=== PATIENT | female | born 1940 | race Caucasian/White ===

== ENCOUNTER 2019-01-27 13:47 | Inpatient (IN) ==
--- NOTE | 2019-01-27 11:39 | Anesthesia Evaluation PreOp ---
Date of Encounter: 01/27/19 Time of Encounter: 15:16 - Past History Planned Operation: Right Total Knee Arthroplasty Cardiac History: HTN, Hyperlipidemia Pulmonary History: Smoker (45 years), Snore, ARNOL Dx (dos not use CPAP) COMPONENT TECHNICIAN History: Other (chronic low back pain) Other Medical History: Thyroid, GERD, Other (anxiety) Anesthesia History: Past Anesthesia, Problems (PONV) Alcohol Use: none Drug use: none Medications and Allergies Albuterol Sulfate [Ventolin Hfa] 2 puff IH Q4H PRN 01/27/19 [History] Buspirone HCl [Buspar] 5 mg PO BID 01/27/19 [History] FLUoxetine HCl [PROzac] 60 mg PO DAILY 01/27/19 [History] Fluticasone/Salmeterol [Advair 250-50 Diskus] 1 puff IH BID 01/27/19 [History] Furosemide [Lasix] 40 mg PO DAILY 01/27/19 [History] Gabapentin [Neurontin] 200 mg PO TID 01/27/19 [History] Levothyroxine Sodium 112 mcg PO DAILY 01/27/19 [History] Lisinopril/Hydrochlorothiazide [Zestoretic 20-25 mg Tablet] 1 tab PO DAILY 01/27/19 [History] Meloxicam 15 mg PO DAILY 01/27/19 [History] Omeprazole [PriLOSEC] 20 mg PO DAILY 01/27/19 [History] Pravastatin Sodium [Pravachol] 40 mg PO HS 01/27/19 [History] Allergy/AdvReac Type Severity Reaction Status Date / Time codeine AdvReac Hives Verified 01/27/19 14:38 - Meds/Allergy Pre-op Review Medications Reviewed: Yes Allergies Reviewed: Yes Beta Blockers on Current Med List: No Anesthesia Results - Labs Laboratory Tests 01/26/19 01/26/19 01/26/19 09:33 09:33 09:33 WBC 9.8 Hgb 16.8 H Hct 50.9 H Plt Count 337 PT 11.3 INR 1.0 APTT 36.0 Sodium 138 Potassium 3.4 L BUN 23 Creatinine 1.10 - Imaging EKG: report reviewed (12/29/2018 SINUS RHYTHM NONSPECIFIC T-WAVE ABNORMALITY) Additional studies: 01/18/2019 LEFT HEART CATH Indications: Pre-operative Evaluation Impressions: Coronary arteries have minimal disease The left ventricle is normal and has normal contractility EF 60% Acceptable intermediate CV risk for intermediate risk surgery Recommendations: Optimal medical therapy of patient's disease. Aggressive risk factor modification. 01/07/2019 Echo Impressions: LVEF 60%. Not all LV segments were well visualized. Overall, LVEF is normal. Mild concentric left ventricular hypertrophy. Mild left ventricular diastolic dysfunction. Normal right ventricular structure and function. No evidence of pulmonary hypertension. No significant valvular dysfunction. 01/06/2019 Stress Impression: Fair quality 2 day study. Pharmacologic stress ECG is non-diagnostic due to submaximal HR. Gated EF = 72%. Medium sized, moderate intensity, mostly reversible defect involving the inferolateral and anterolateral segments possibly due to ischemia. Ordering physician notified via eCW message. Anesthesia Exam O2 Sat Height 1.65 m Weight 107.955 kg O2 Sat by Pulse Oximetry 91 Vital Signs Temp Pulse Resp BP Pulse Ox 98.0 F 65 18 128/66 91 01/27/19 14:02 01/27/19 14:02 01/27/19 14:02 01/27/19 14:02 01/27/19 14:02 Height: 5'5'' Weight: 238 lbs NPO (# of Hours): 8 Pain Scale: 5 (low back) Pain Scale Used: Numeric (1 - 10) - HEENT Pupil (Motor): EOMI Mallampati: II Teeth: Missing, Poor dentition Denture Type: Upper: Complete Oral Opening: Greater than 3 - COMPONENT TECHNICIAN LOC: Oriented COMPONENT TECHNICIAN Motor: Normal RUE, Normal RLE, Normal Face, Deficit LUE, Deficit LLE COMPONENT TECHNICIAN Sensory: Normal: RUE, RLE, Face, Deficit: LUE, LLE - Cardiac Rhythm: Regular Murmur: None - Pulmonary Breath Sounds: bilateral Clear Respiratory Effort: Symmetrical Anesthesia Assess/Plan ASA Score: 3 Level of consciousness: Cooperative, Oriented, Tranquil Anesthetic Plan: General, Regional Nerve Block Regional Nerve Block Plan: Adductor canal Reason for No Neuroaxial/Regional Block: Patient refusal Monitoring Plan: Standard Monitors Recovery Plan: PACU
[2019-01-27] MEDS ORDERED: Albuterol 2.5 MG/3 ML NEBULIZER IH ONE (14:54)
[2019-01-27] MEDS ORDERED: CeFAZolin Syr 2,000MG/20 ML 2,000 MG/20 ML SYRINGE IVPB ONE (14:54)
[2019-01-27] MEDS ORDERED: Ringers Solution, Lactated 1,000 ML IVC SCH (15:00)
--- NOTE | 2019-01-27 15:19 | Discharge Summary ---
<Jean Rodríguez M - Last Filed: 01/27/19 15:16> Date of Encounter: 01/27/19 - Discharge Diagnosis (1) Osteoarthritis of right knee Priority: Primary Status: Acute Qualifiers: Osteoarthritis type: unspecified Qualified Code(s): M17.11 - Unilateral primary osteoarthritis, right knee (2) HTN (hypertension) Priority: Secondary Status: Acute Qualifiers: Hypertension type: unspecified Qualified Code(s): I10 - Essential (primary) hypertension (3) GERD (gastroesophageal reflux disease) Priority: Secondary Status: Acute Qualifiers: Esophagitis presence: esophagitis presence not specified Qualified Code(s): K21.9 - Gastro-esophageal reflux disease without esophagitis - Hospital Course Hospital course: Ms. Cardenas is a 78 year old female - Time Spent with Patient Total time spent providing and/or coordinating discharge services: - Discharge Medications Prescriptions: New Docusate [Colace] 100 mg PO BID 5 Days #10 capsule Ibuprofen [Motrin] 600 mg PO Q6HR PRN 7 Days #28 tab PRN Reason: Pain Acetaminophen [Pain Relief] 500 mg PO Q6H 7 Days #28 tablet OxyCODONE Immed Rel [Roxicodone 5 MG] 5 mg PO Q6HR PRN 5 Days #20 tablet PRN Reason: Severe Pain Ciprofloxacin [Cipro] 500 mg PO BID 10 Days #20 tablet metroNIDAZOLE [Flagyl] 500 mg PO TID 10 Days #30 tablet Continued Albuterol Sulfate [Ventolin Hfa] 2 puff IH Q4H PRN PRN Reason: Shortness Of Breath Buspirone HCl [Buspar] 5 mg PO BID FLUoxetine HCl [Prozac] 60 mg PO DAILY Fluticasone/Salmeterol [Advair 250-50 Diskus] 1 puff IH BID Furosemide [Lasix] 40 mg PO DAILY Gabapentin [Neurontin] 200 mg PO TID Levothyroxine Sodium 112 mcg PO DAILY Meloxicam 15 mg PO DAILY Omeprazole [PriLOSEC] 20 mg PO DAILY Pravastatin Sodium [Pravachol] 40 mg PO HS Discontinued Lisinopril/Hydrochlorothiazide [Zestoretic 20-25 mg Tablet] 1 tab PO DAILY Home Medications: Acetaminophen [Pain Relief] 500 mg PO Q6H 7 Days #28 tablet 01/27/19 [Rx] Albuterol Sulfate [Ventolin Hfa] 2 puff IH Q4H PRN 01/27/19 [History] Buspirone HCl [Buspar] 5 mg PO BID 01/27/19 [History] Docusate [Colace] 100 mg PO BID 5 Days #10 capsule 01/27/19 [Rx] FLUoxetine HCl [Prozac] 60 mg PO DAILY 01/27/19 [History] Fluticasone/Salmeterol [Advair 250-50 Diskus] 1 puff IH BID 01/27/19 [History] Furosemide [Lasix] 40 mg PO DAILY 01/27/19 [History] Gabapentin [Neurontin] 200 mg PO TID 01/27/19 [History] Ibuprofen [Motrin] 600 mg PO Q6HR PRN 7 Days #28 tab 01/27/19 [Rx] Levothyroxine Sodium 112 mcg PO DAILY 01/27/19 [History] Meloxicam 15 mg PO DAILY 01/27/19 [History] Omeprazole [PriLOSEC] 20 mg PO DAILY 01/27/19 [History] OxyCODONE Immed Rel [Roxicodone 5 MG] 5 mg PO Q6HR PRN 5 Days #20 tablet 01/27/19 [Rx] Pravastatin Sodium [Pravachol] 40 mg PO HS 01/27/19 [History] Ciprofloxacin [Cipro] 500 mg PO BID 10 Days #20 tablet 02/01/19 [Rx] metroNIDAZOLE [Flagyl] 500 mg PO TID 10 Days #30 tablet 02/01/19 [Rx] Allergies/Adverse Reactions: Allergy/AdvReac Type Severity Reaction Status Date / Time codeine AdvReac Hives Verified 01/27/19 14:38 Primary care physician: Marcial Buck CNP - Patient Status Disposition: Transfer SNF Condition: Good - Discharge Instructions Follow Up With: Marcial Buck CNP [Primary Care Provider] - () Additional Instructions: Discharge Instructions: Total Knee Replacement Please call [facility] ([phone]), your Primary Care Physician, or report to the Emergency Room if you have any of the following symptoms: Nausea, vomiting, fever greater that 101.5, swelling, chest pain, shortness of breath, increased pain/redness/drainage/odor for your incision site, numbness/tingling, or any other concerning symptoms. ACTIVITY:Weight-bearing as tolerated. You may progress off support (crutches or walker) as tolerated. Incentive Spirometer 10 times an hour. MEDICATIONS: Upon discharge resume your home medications. Take all the medications as prescribed. Take a stool softener if taking narcotic pain medications. Stool softeners are only effective if you drink enough fluids. Drink 6-8 glass of water or fluids a day, unless this is not allowed for another health problem. Despite using stool softeners, if you haven't had a bowel movement in 3 days, please switch to a gentle laxative. Gentle laxatives are sold over the counter. You should have a bowel movement within 24 hours, if not call the office. You will be discharged from the hospital with a prescription for pain medication. You are encouraged to decrease the use of narcotic pain medication as tolerated. Should you require a refill, please call the office. [facility] prescribes narcotic pain medication for only 4-6 weeks after surgery. If you require pain medication beyond this time period, you may be referred to your Primary Care Physician or to the Pain Clinic for further evaluation. Plan ahead for refills on pain medication as many narcotics either need to be picked up at the office or mailed. It is best to call 48-72 hours in advance of needing a prescription refill so you don't run out of medication. To help control the post-operative pain, you may take NSAIDs (Aleve,Advil, Motrin, Ibuprofen, Naprosyn) or Tylenol as prescribed on the bottle in addition to the pain medication. ANTICOAGULATION (blood thinners): Continue your Aspirin, Lovenox or Coumadin as prescribed to help prevent a blood clot in the leg or in the lungs. As long as your incision remains dry and you tolerate the NSAIDs (Aleve, Advil, Motrin, ibuprofen, naprosyn), it is OK to use the NSAIDS while you are taking your anticoagulation medication. Should your incision start to drain, stop the NSAID and contact our office. Common symptoms of blood clot in the legs include: localized pain, swelling, calf tenderness, redness or discoloration of the skin. Blood clot in the lung s ymptoms include: shortness of breath, rapid pulse, sweating, and chest pain that worsens with deep breathing, coughing up blood, lightheadedness, feelings of anxiety. If you experience any of these symptoms notify your physician immediately, go to the emergency room, or if having trouble breathing, call 911. WOUND CARE: Leave the dressing on for 7 to 10days. You may change the dressing if it becomes saturated greater than 50%. Do not get the dressing wet at anytime. Wash your hands with antibacterial soap, rinse and dry prior to any wound care. If you have mera the visiting nurse or rehab facility can remove the stapes 10-14 days after surgery and place steri-strips across the wound. Leave the steri-strips in place until they fall off on their won. You may let water from the shower run on top of the steri-strips. If you do not have a visiting nurse or rehab facility, you will need to return to the office at 10-14 days for the mera to be removed. If you have itching or redness around the dressing call the office. FOLLOW-UP: Please follow up with your surgeon in the orthopedic clinic in 4 weeks from the day of surgery. If you have mera that need to be removed, you will need to come back to the office in 10-14 days from the day of surgery. <Ashely Avina - Last Filed: 02/01/19 16:27> Date of Encounter: 02/01/19 Time of Encounter: 12:20 - Discharge Diagnosis (1) Status post total right knee replacement Priority: Primary Status: Acute (2) Osteoarthritis of right knee Priority: Primary Status: Chronic Qualifiers: Osteoarthritis type: unspecified Qualified Code(s): M17.11 - Unilateral primary osteoarthritis, right knee (3) Hypotension Priority: Secondary Status: Resolved Qualifiers: Hypotension type: unspecified hypotension type Qualified Code(s): I95.9 - Hypotension, unspecified (4) LLQ abdominal pain Priority: Secondary Status: Acute (5) COPD (chronic obstructive pulmonary disease) Priority: Secondary Status: Chronic Qualifiers: COPD type: unspecified COPD Qualified Code(s): J44.9 - Chronic obstructive pulmonary disease, unspecified (6) Diabetes mellitus Priority: Secondary Status: Chronic Qualifiers: Diabetes mellitus type: type 2 Diabetes mellitus electric shaver mechanic insulin use: unspecified electric shaver mechanic insulin use status Diabetes mellitus complication status: without complication Qualified Code(s): E11.9 - Type 2 diabetes mellitus without complications (7) GERD (gastroesophageal reflux disease) Priority: Secondary Status: Chronic Qualifiers: Esophagitis presence: esophagitis presence not specified Qualified Code(s): K21.9 - Gastro-esophageal reflux disease without esophagitis (8) HLD (hyperlipidemia) Priority: Secondary Status: Chronic Qualifiers: Hyperlipidemia type: unspecified Qualified Code(s): E78.5 - Hyperlipidemia, unspecified (9) HTN (hypertension) Priority: Secondary Status: Chronic Qualifiers: Hypertension type: unspecified Qualified Code(s): I10 - Essential (primary) hypertension (10) ARNOL on CPAP Priority: Secondary Status: Chronic (11) Obesity Priority: Secondary Status: Chronic Qualifiers: Obesity type: unspecified obesity type Obesity classification: adult class 3 (BMI >= 40) Body mass index: BMI 40.0-44.9 (12) Smoking Priority: Secondary Status: Chronic (13) Thyroid disorder Priority: Secondary Status: Chronic - Hospital Course Hospital course: Ms. Cardenas is a 78 year old female status post right TKR 01/27/19 with medical history of OA, DM, HTN, COPD, ARNOL with noncompliant use of CPAP, smoker, thyroid disorder. Hospitalist was consults for management of postoperative hypotension and mild acute blood loss anemia both of which resolved/improved with fluid bolus. She did develop nausea, diarrhea and abdominal cramping which raised concern for possible cdiff. CT of abd/pelvis showed nonspecific colitis and diverticulosis. diarrhea resolved before a stool sample could be collected. Nausea is improved as well. Hospitalist recommends she still be discharged on 10 day course of cipro and flagyl. She participated in therapy and is recommended for placement to ECF. She is stable for discharge at this time. POD#5 s/p Right robotic-assisted Total knee replacement [arthritis] 01/27/19 Patient seen at bedside with no complaints. A&Ox3 Dressing has quarter sized area of older bloody drainage. Nurse to change dressing before patient leaves. No calf tenderness, erythema, or warmth. good dorsiflexion of foot, sensation intact distally. Labwork, vitals, and medications reviewed. H/H improved to 11.4/35.6, WBC improved from 14.2 to 12.7, kidney function improved. Pain control: Adequate Participating in therapy. All questions and concerns addressed. Educated on use of incentive spirometer, ambulation, and hydration. Patient educated on post-operative restrictions and care. D/C plan: ECF today - Time Spent with Patient Total time spent providing and/or coordinating discharge services: Date of admission: 01/28/19 11:19 Primary care physician: Marcial Buck CNP Consults: 01/27/19 20:04 Consult to Nutrition [CONS] Routine Comment: Consulting Provider: NUTRITION Reason for Dietary Consult: Other Other:: Proper nutrition to facilitate wound healing Consult to Occupational Therapy [CONS] Routine Comment: Evaluate, develop and implement POC Reason for Consult: post knee surgery Does patient have active BEDREST order?: No Is patient medically & hemodynamically stable?: Yes Consult to Orthopedic Navigator [CONS] [CONS] Routine Consult to Physical Therapy [CONS] Routine Comment: Evaluate, develop and impliment POC Reason for Consult: post knee surgery Does patient have active BEDREST order?: No Is patient medically & hemodynamically stable?: Yes Consult to Assembly Machine Tender [CONS] Routine Reason for SW Consult: post op joint replacement RT Post Op Consult [CONS] Routine 01/30/19 07:48 Consult to Hospitalist [CONS] Routine Consulting Provider: Hospitalist Jessica Reason for Consult: low blood pressure Call Completed: Yes Discharging clinician: Werner Lewis Anticipated date of discharge: 02/01/19 Labs on day of discharge: Labs from last 24 hours 02/01/19 02/01/19 05:46 05:46 WBC 12.7 H RBC 4.00 Hgb 11.4 L Hct 35.6 MCV 89.0 MCH 28.5 MCHC 32.0 RDW 14.2 Plt Count 307 MPV 9.5 Sodium 141 Potassium 3.6 Chloride 98 Carbon Dioxide 34 H BUN 14 Creatinine 0.85 Est GFR ( Amer) > 60 Est GFR (Non-Af Amer) > 60 BUN/Creatinine Ratio 16 Glucose 106 H Calculated Osmolality 293 Calcium 9.2 Short CBC 02/01/19 Range/Units 05:46 WBC 12.7 H (4.3-11.1) K/mcL Hgb 11.4 L (11.5-15.4) g/dL Hct 35.6 (35.3-44.9) % Plt Count 307 (140-400) K/mcL BMP 02/01/19 Range/Units 05:46 Sodium 141 (136-145) mEq/L Potassium 3.6 (3.5-5.1) mEq/L Chloride 98 (98-107) mEq/L Carbon Dioxide 34 H (23-29) mEq/L BUN 14 (8-23) mg/dL Creatinine 0.85 (0.60-1.20) mg/dL Glucose 106 H (70-105) mg/dL Calcium 9.2 (8.6-10.3) mg/dL - Impressions ITS Impressions Knee X-Ray 01/27/19 01:00 IMPRESSION: Expected postsurgical change from right knee total arthroplasty. D/ / Werner Grajeda MD / Werner Grajeda MD Interpreting Provider: Werner Grajeda MD Abdomen/Pelvis CT 01/31/19 10:22 IMPRESSION: 1. Mild bowel wall thickening of the proximal descending colon which is nonspecific but could indicate a mild infectious or inflammatory colitis. 2. Marked diverticulosis. 3. Incidental left adrenal adenoma. 4. Moderate atherosclerosis. D/ / 01/31/2019 15:26:58 Yosef Barahona MD / [facility] Interpreting Provider: Yosef Barahona MD - Patient Status Functional capacity at discharge: uses cane/walker Overall status at discharge: patient is progressing back to baseline - Diet and Activity Activity: ambulate only with your walker, as per physical therapy Diet: advance to your usual diet
[2019-01-27] MEDS ORDERED: Scopolamine Patch 1.5 MG PATCH.TD72 TD ONE (15:30)
[2019-01-27] MEDS ORDERED: Gabapentin 300 MG CAPSULE PO ONE (15:30)
[2019-01-27] MEDS ORDERED: Celecoxib 200 MG CAPSULE PO ONE (15:30)
[2019-01-27] MEDS ORDERED: *HR* OxyCODONE ER (12 HR) 10 MG TABLET PO ONE (15:31)
[2019-01-27] MEDS ORDERED: Ondansetron 4 MG/2 ML VIAL IVP ONE (15:41)
[2019-01-27] MEDS ORDERED: Total Joint Mixture (50 ml) IR ONE (16:10)
[2019-01-27] MEDS ORDERED: Ethanol\\Acetic Acid\\Na Ace\\Ben 1,000 ML IRRIG.SOLN IR ONE (16:22)
[2019-01-27] MEDS ORDERED: *HR* FentaNYL (PF) 100 MCG/2 ML VIAL ONE (16:24)
[2019-01-27] MEDS ORDERED: Dexamethasone 4 MG/ML VIAL ONE ×2 (16:27→17:40)
[2019-01-27] MEDS ORDERED: Lidocaine -MPF 2% 2 ML VIAL ONE (16:27)
[2019-01-27] MEDS ORDERED: ROPIVACAINE/PF/NS 0.25% 1 EACH SYRINGE INTRAART ONE (16:28)
[2019-01-27] MEDS ORDERED: *HR* Rocuronium Bromide 50 MG/5 ML VIAL ONE (17:04)
[2019-01-27] MEDS ORDERED: Tranexamic Acid 1,000 MG/10 ML VIAL ONE ×2 (17:09→17:20)
--- NOTE | 2019-01-27 17:19 | Anesthesia Procedures ---
Date of Encounter: 01/27/19 Time of Encounter: 16:50 Procedures: Anesthesia - Nerve Block Procedure Date: 01/27/19 Time: 16:50 Allergies/Adv Reactions: Allergy/AdvReac Type Severity Reaction Status Date / Time codeine AdvReac Hives Verified 01/27/19 14:38 Pre-op Diagnosis: right knee arthritis Surgical Procedure: right total replacement robotic Checklist: Correct Patient Identifier, Correct procedure, History checked Correct side: Right Blood Thinner: No Monitor Applied: EKG, BP, Pulse Oximetry Supplemental Oxygen via Nasal Cannula (L/min): 2 Sedation: Fentanyl (mcg): 100 Indication: Post Op Analgesia Block Type: Other (addcutor canal) Catheter placed: No Sterile Technique: Yes Ultrasound used: Yes Anatomy identified: Yes Visual spread of Local: Yes Blood on Needle Aspiration: No Smooth Injection of Local: Yes Pain with Injection of Local: No Prep: Chlorhexadine Needle: 21 x 100 mm Stimuplex Local: Ropivacaine (10ml .25% ropivicaine with decadron) Volume (cc): 10 Number of Attempts: 1 Complications: None/effective block Vitals: see nurses vitals
[2019-01-27] MEDS ORDERED: Ondansetron 4 MG/2 ML VIAL ONE (17:40)
--- NOTE | 2019-01-27 17:44 | Orthopedic Operative Note ---
Date of procedure: 01/27/19 Pre-op diagnosis: Right knee arthritis Post-op diagnosis: same Procedure: Procedure: Right robotic-assisted Total knee replacement Estimated blood loss: 300 cc Hardware: Metal and polyethylene replacement. [place] Femur: 5 Tibia: 4 TS insert:9 Patella: 36 Exam Under anesthesia: 13 degree flexion contracture and 13 degree varus deformity as calculated by the robot full flexion and no instability Procedural Notes: Grade 4 arthritic changes all 3 compartments multiple loose bodies Operative procedure: The patient was brought to the operating room and placed on the operating room table. After anesthesia was administered the operative knee was examined. Findings were noted in the exam under anesthesia. The operative extremity was prepped and draped in sterile surgical fashion. The patient received IV antibiotics prior to skin incision. A standard midline incision was made centered over the patella. The incision was made through the skin and subcutaneous tissue. A medial parapatellar tendon approach was performed. Care was taken to preserve tissue along the medial aspect of the patella. And to protect the patella tendon. The deep MCL was released off the medial tibia. The infra patella fat pad was excised. The patella was everted and cut was made at the level of the insertion of the quadriceps and patella tendon. The patella was sized the guide was seated and the lug holes are drilled. Knee was brought into flexion. Patient noted to have grade 4 arthritic changes all 3 compartments with multiple loose bodies which were removed. Steinmann pins were placed in the tibia and the femur for the tibial and femoral arrays respectively. Checkpoints were also placed in the tibia and the femur for calculation purposes. The knee including the femur and the tibial registered. Osteophytes, ACL and PCL were excised at this point. Extension and flexion were assessed with a valgus stress components were adjusted on the computer to balance the knee. Femoral cuts were made first with robotic assistance, these included the anterior cut posterior cuts chamfer cuts. Tibial cut was then performed with robotic assistance as well. Bone fragments were removed, as well as the medial and lateral meniscus. The size 5 femoral guide was seated box cut was made lug holes are drilled. The size 4 tibial tray was seated and prepared with the fin cutter. Trial reduction with the 9 TS Jeanna revealed extension of 0 degrees and 6 degree varus and full flexion. No varus valgus instability. Trial reduction revealed excellent patella tracking. All trial components were removed all bony surfaces were irrigated. The Tibia was seated followed by the femur, The selected Jeanna size was seated and secured patella. Patient had similar findings for motion and stability. The knee was closed by the PA. The knee was then irrigated out with 2 L of pulse irrigation. The extensor mechanism was closed with #2 FiberWire suture and #2 PDS suture. The subcutaneous tissue was then irrigated and closed deep with #1 PDS suture superficially with 0 PDS suture and skin was closed with zip tie The patient was then placed in a sterile dressing and a postoperative brace and transferred to recovery room in stable condition. Anesthesia: GETA Surgeon: Werner Lewis Was there an assistant banquet manager present: Yes Assistant Community Manager: Jean Rodríguez Estimated blood loss (cc): 300 Condition: stable Disposition: PACU
[2019-01-27] MEDS ORDERED: EPHEDrine 50 MG/ML VIAL ONE (17:49)
[2019-01-27] MEDS ORDERED: *HR* HYDROMORPHONE 2 MG/ML VIAL ONE (17:54)
[2019-01-27] MEDS: *HR* HYDROmorphone (PF) 1 MG/ML SYRINGE IVP PRN ×2 (18:37→18:48)
[2019-01-27 19:09] LABS: Hematocrit 41.5 % (35.3-44.9); Hemoglobin 13.5 g/dL (11.5-15.4)
[2019-01-27] MEDS ORDERED: Sennosides 8.6 MG TABLET PO PRN (20:04)
[2019-01-27] MEDS ORDERED: traMADol 50 MG TABLET PO PRN (20:04)
[2019-01-27] MEDS ORDERED: MOM Conc 10 ML UD.LIQ PO PRN (20:04)
[2019-01-27] MEDS ORDERED: Temazepam 15 MG CAPSULE PO PRN (20:04)
[2019-01-27] MEDS ORDERED: *HR* OxyCODONE Immed Rel 5 MG TABLET PO PRN (20:04)
[2019-01-27] MEDS ORDERED: Naloxone 0.4 MG/ML INJ IVP PRN (20:04)
[2019-01-27] MEDS ORDERED: *HR* Promethazine 25 MG/ML VIAL IVP PRN (20:04)
--- NOTE | 2019-01-27 20:58 | Anesthesia Evaluation Post Op ---
Date of Encounter: 01/27/19 Time of Encounter: 21:00 - Vital Signs Vital Signs: Vital Signs/O2 Sat/Glucose, Most Current Temp Pulse Resp BP Pulse Ox 01/27/19 20:30 98.1 F 75 14 107/68 90 01/27/19 20:03 97.2 F L 75 14 138/83 95 01/27/19 20:00 98.4 F 74 14 138/83 91 01/27/19 19:59 13 93 01/27/19 19:29 97.7 F 74 10 107/58 98 01/27/19 19:19 97.6 F 75 10 121/53 100 01/27/19 19:09 69 10 118/54 100 01/27/19 18:59 70 8 109/52 92 01/27/19 18:49 97.6 F 75 12 119/59 95 01/27/19 18:39 68 12 119/51 98 01/27/19 18:29 79 10 118/69 97 01/27/19 18:19 97.5 F L 77 14 148/68 98 - Lungs Lungs: Clear Ascult./Percussion - Airway Airway: Non-obstructed - Cardiovascular Regular Rate - Mental Status Mental Status: Alert & Oriented, Answers Appropriately - Pain Pain Scale: 0 - Nausea Vomiting Nausea Vomiting: Not Present - Hydration Hydration: Ice chips - Discharge PostOp Status: Transfer Patient to floor
[2019-01-27] MEDS ORDERED: Gabapentin 300 MG CAPSULE PO SCH (21:00)
[2019-01-27] MEDS: Gabapentin 100 MG CAPSULE PO SCH (22:14)
[2019-01-27] MEDS: Ringers Solution, Lactated 1,000 ML IVC SCH (22:14)
[2019-01-27] MEDS: *HR* Enoxaparin 30 MG/0.3 ML SYRINGE SQ SCH (22:15)
[2019-01-27] MEDS: Ascorbic Acid 500 MG TABLET PO SCH (22:17)
[2019-01-27] MEDS: Budesonide/Formoterol 80/4.5 1 PUFF INH IH SCH (22:30)
[2019-01-28] MEDS: HYDROcodone BIT/Homatropine 5 MG TABLET PO PRN ×3 (02:26→18:11)
[2019-01-28 02:47] LABS: Basophils % 0.1 %; Hematocrit 43.7 % (35.3-44.9); Hemoglobin 13.6 g/dL (11.5-15.4); Immature Granulocytes % 0.6 % (0-4); Lymphocytes # 0.6 K/mcL (0.6-4.6); Mean Corpuscular HGB Conc 31.1 g/dL (31.6-35.5); Mean Corpuscular Volume 89.9 fL (83.0-100.0); Mean Platelet Volume 9.2 fL (9.4-12.4); Monocytes # 0.2 K/mcL (0.0-1.3); Monocytes % 1.3 %; Neutrophils # 13.6 K/mcL (1.6-8.9); Platelet Count 288 K/mcL (140-400); Red Blood Count 4.86 M/mcL (3.82-4.97); Red Cell Distribution Width 14.1 % (11.5-14.5); White Blood Count 14.5 K/mcL (4.3-11.1)
[2019-01-28 03:06] LABS: Calcium 8.9 mg/dL (8.6-10.3); Potassium 4.1 mEq/L (3.5-5.1)
[2019-01-28] MEDS: *HR* Enoxaparin 30 MG/0.3 ML SYRINGE SQ SCH ×2 (06:56→17:04)
[2019-01-28] MEDS: Budesonide/Formoterol 80/4.5 1 PUFF INH IH SCH ×2 (07:45→20:02)
--- NOTE | 2019-01-28 07:54 | Orthopedics Progress Note ---
Date of Encounter: 01/28/19 Time of Encounter: 07:53 Subjective Interval history: Patient was seen this morning doing well without complaints. Afebrile vital signs stable. Operative extremity: Neurovascularly intact Dressing clean dry and intact Calves nontender Assessment and plan: Continue with postoperative care Hematocrit 43 Objective Vital signs: Vital Signs Temp Pulse Pulse Resp BP Pulse Ox 01/28/19 07:47 16 96 01/28/19 06:34 98.5 F 87 16 126/67 96 01/28/19 00:08 82 01/27/19 23:42 76 01/27/19 23:00 98.7 F 81 16 122/68 92 01/27/19 22:31 17 96 01/27/19 22:00 98.5 F 78 16 116/74 96 01/27/19 20:59 97.9 F 77 16 120/62 95 01/27/19 20:30 98.1 F 75 14 107/68 90 01/27/19 20:03 97.2 F L 75 14 138/83 95 01/27/19 20:00 98.4 F 74 14 138/83 91 01/27/19 19:59 13 93 01/27/19 19:29 97.7 F 74 10 107/58 98 01/27/19 19:19 97.6 F 75 10 121/53 100 01/27/19 19:09 69 10 118/54 100 01/27/19 18:59 70 8 109/52 92 01/27/19 18:49 97.6 F 75 12 119/59 95 01/27/19 18:39 68 12 119/51 98 01/27/19 18:29 79 10 118/69 97 01/27/19 18:19 97.5 F L 77 14 148/68 98 01/27/19 15:18 18 128/66 91 01/27/19 14:02 98.0 F 65 18 128/66 91 Intake and Output 01/27/19 01/27/19 01/28/19 15:59 23:59 07:59 Output Total 300 / 300 Balance -300 / -300 Output: Estimated Blood Loss 300 / 300 Other: Weight 107.955 kg 108 kg Blood Glucose* 93 Patient Weight 01/28/19 23:59 Weight 108 kg - Labs CBC & BMP: 01/28/19 02:01 01/28/19 02:01 Labs: Abnormal lab results WBC 14.5 K/mcL (4.3-11.1) H 01/28/19 02:01 MCHC 31.1 g/dL (31.6-35.5) L 01/28/19 02:01 MPV 9.2 fL (9.4-12.4) L 01/28/19 02:01 Neutrophils # 13.6 K/mcL (1.6-8.9) H 01/28/19 02:01 BUN 26 mg/dL (8-23) H 01/28/19 02:01 Est GFR ( Amer) 59 (> 60) L 01/28/19 02:01 Est GFR (Non-Af Amer) 48 (> 60) L 01/28/19 02:01 Glucose 183 mg/dL (70-105) H 01/28/19 02:01 Consult Discharge Plan - Plan Referrals: Marcial Buck, IMPORT CUSTOMS CLEARING AGENT [Primary Care Provider] - Prescriptions: Docusate [Colace] 100 mg PO BID 5 Days #10 capsule Ibuprofen [Motrin] 600 mg PO Q6HR PRN 7 Days #28 tab PRN Reason: Pain Acetaminophen [Pain Relief] 500 mg PO Q6H 7 Days #28 tablet OxyCODONE Immed Rel [Roxicodone 5 MG] 5 mg PO Q6HR PRN 5 Days #20 tablet PRN Reason: Severe Pain
[2019-01-28] MEDS: Gabapentin 100 MG CAPSULE PO SCH ×3 (09:28→20:56)
[2019-01-28] MEDS: FLUoxetine 20 MG CAPSULE PO SCH (09:28)
[2019-01-28] MEDS: Multivit/Ca/Min/Fe/FA 1 TAB TABLET PO SCH (09:28)
[2019-01-28] MEDS: Ascorbic Acid 500 MG TABLET PO SCH ×2 (09:28→17:04)
[2019-01-28] MEDS: Furosemide 40 MG TABLET PO SCH (09:28)
--- NOTE | 2019-01-28 11:22 | Event Note ---
Date of Encounter: 01/28/19 Time of Encounter: 12:10 POD#1 s/p Right robotic-assisted Total knee replacement [arthritis] 01/27/19 Patient seen at bedside. A&Ox3 Dressing and incision c/d/i No calf tenderness, erythema, or warmth. Neurovascularly intact b/l LE. Labwork, vitals, and medications reviewed. Pain control: Adequate Participating in therapy. All questions and concerns addressed. Educated on use of incentive spirometer, ambulation, and hydration. Patient educated on post-operative restrictions and care. Addressed: see above. Patient course and disposition discussed with Dr. Lewis D/C plan: awaiting ECF placement
--- NOTE | 2019-01-28 11:22 | Physician Discharge Referral ---
ExtendedCare Referral Info Transfer To: [facility] Provider in Charge: Dr. Werner Lewis - Diagnosis (1) Osteoarthritis of right knee Priority: Primary Status: Chronic (2) Status post total right knee replacement Priority: Primary Status: Acute (3) Diabetes mellitus Priority: Secondary Status: Chronic (4) COPD (chronic obstructive pulmonary disease) Priority: Secondary Status: Chronic (5) Smoking Priority: Secondary Status: Chronic (6) ARNOL on CPAP Priority: Secondary Status: Chronic (7) Thyroid disorder Priority: Secondary Status: Chronic (8) HLD (hyperlipidemia) Priority: Secondary Status: Chronic (9) Obesity Priority: Secondary Status: Chronic (10) GERD (gastroesophageal reflux disease) Priority: Secondary Status: Chronic (11) HTN (hypertension) Priority: Secondary Status: Chronic Expected Duration of Placement: less than 30 days Prognosis: Good Aware of Diagnosis: Patient Aware of Prognosis: Patient - Transfer Medications Home Medications: Acetaminophen [Pain Relief] 500 mg PO Q6H 7 Days #28 tablet 01/27/19 [Rx] Albuterol Sulfate [Ventolin Hfa] 2 puff IH Q4H PRN 01/27/19 [History] Buspirone HCl [Buspar] 5 mg PO BID 01/27/19 [History] Docusate [Colace] 100 mg PO BID 5 Days #10 capsule 01/27/19 [Rx] FLUoxetine HCl [PROzac] 60 mg PO DAILY 01/27/19 [History] Fluticasone/Salmeterol [Advair 250-50 Diskus] 1 puff IH BID 01/27/19 [History] Furosemide [Lasix] 40 mg PO DAILY 01/27/19 [History] Gabapentin [Neurontin] 200 mg PO TID 01/27/19 [History] Ibuprofen [Motrin] 600 mg PO Q6HR PRN 7 Days #28 tab 01/27/19 [Rx] Levothyroxine Sodium 112 mcg PO DAILY 01/27/19 [History] Lisinopril/Hydrochlorothiazide [Zestoretic 20-25 mg Tablet] 1 tab PO DAILY 01/27/19 [History] Meloxicam 15 mg PO DAILY 01/27/19 [History] Omeprazole [PriLOSEC] 20 mg PO DAILY 01/27/19 [History] OxyCODONE Immed Rel [Roxicodone 5 MG] 5 mg PO Q6HR PRN 5 Days #20 tablet 01/27/19 [Rx] Pravastatin Sodium [Pravachol] 40 mg PO HS 01/27/19 [History] Allergies/Adverse Reactions: Allergy/AdvReac Type Severity Reaction Status Date / Time codeine AdvReac Hives Verified 01/27/19 14:38 - Respiratory Orders Smoking Cessation: Smoking cessation has been advised. For more information, call the [place] Tobacco Quit Line at 0-030-PQQL-NOW. - Ancillary Orders May use pressure relief devices daily prn, May go on PACHECO w/family/respon constitution party w/meds at nurse discretion PRN, May consult with Dentist, Photo Equipment Technician, Agent Producer PRN - Mobility Orders Chair, Ambulate - Rehabiliation Orders Rehab Potential: Good Rehab Orders: Evaluation for Physical Therapy, Evaluation for Occupational Therapy Other: Total Knee replacement Precautions x 6 weeks Apply cold therapy wrap 3-6x/day for 20 minutes at a time. Encourage ambulation throughout the day and incentive spirometer 10x/hour. Elevate affected extremity above heart as tolerated. Brace: Wear knee immobilizer at night x 2 weeks. Opsite placed. Keep dressing intact until first follow up appointment. If greater than 50% saturated, notify office, remove dressing and place appropriate dressing back in place. Leave Zipline intact. Opsite dressing is water resistant, not water-proof. OK to shower, but do not get dressing wet. - Treatments Skin tear care topically daily PRN per policy - Diet Orders Regular CERTIFICATION: I certify that the transfer of the above named patient to an Extended Care Facility is necessary for the continuing treatment of the diagnosis listed. The above information is true and accurate reflection of patient's current condi tion. Confidential - Redisclosure prohibited without a patient's written consent.
[2019-01-29 06:55] LABS: Basophils % 0.1 %; Eosinophils % 0.2 %; Hematocrit 34.9 % (35.3-44.9); Immature Granulocytes % 0.5 % (0-4); Lymphocytes # 1.7 K/mcL (0.6-4.6); Lymphocytes % 11.1 %; Mean Corpuscular HGB Conc 32.4 g/dL (31.6-35.5); Mean Corpuscular Hemoglobin 28.2 pg (28.0-33.3); Mean Platelet Volume 9.7 fL (9.4-12.4); Monocytes % 6.6 %; Neutrophils # 12.1 K/mcL (1.6-8.9); Platelet Count 237 K/mcL (140-400); Red Blood Count 4.01 M/mcL (3.82-4.97); Segmented Neutrophils % 81.5 %; White Blood Count 14.9 K/mcL (4.3-11.1)
[2019-01-29] MEDS: *HR* Enoxaparin 30 MG/0.3 ML SYRINGE SQ SCH ×2 (06:55→17:12)
[2019-01-29 06:56] LABS: Hemoglobin 11.3 g/dL (11.5-15.4)
[2019-01-29 07:14] LABS: BUN/Creatinine Ratio 28 (6-26); Blood Urea Nitrogen 30 mg/dL (8-23); Calcium 8.7 mg/dL (8.6-10.3); Carbon Dioxide 31 mEq/L (23-29); Chloride 98 mEq/L (98-107); Glucose 125 mg/dL (70-105); Osmolality,Calculated 292 (280-300); Potassium 3.9 mEq/L (3.5-5.1); Sodium 137 mEq/L (136-145); eGFR For African Americans > 60 (> 60); eGFR For Non-African Americans 50 (> 60)
[2019-01-29] MEDS: Budesonide/Formoterol 80/4.5 1 PUFF INH IH SCH ×2 (07:46→19:30)
[2019-01-29] MEDS: HYDROcodone BIT/Homatropine 5 MG TABLET PO PRN ×2 (08:47→20:15)
[2019-01-29] MEDS: Ascorbic Acid 500 MG TABLET PO SCH ×2 (08:47→17:11)
[2019-01-29] MEDS: Multivit/Ca/Min/Fe/FA 1 TAB TABLET PO SCH (08:47)
[2019-01-29] MEDS: FLUoxetine 20 MG CAPSULE PO SCH (08:47)
[2019-01-29] MEDS: Gabapentin 100 MG CAPSULE PO SCH ×3 (08:48→20:15)
[2019-01-29] MEDS: Furosemide 40 MG TABLET PO SCH (08:48)
[2019-01-29] MEDS: Ondansetron 4 MG/2 ML VIAL IVP PRN (14:58)
[2019-01-29 16:10] LABS: Hematocrit 35.2 % (35.3-44.9); Hemoglobin 11.3 g/dL (11.5-15.4)
[2019-01-29 16:31] LABS: Calcium 8.8 mg/dL (8.6-10.3); Potassium 3.4 mEq/L (3.5-5.1)
[2019-01-29] MEDS ORDERED: Ringers Solution, Lactated 500 ML IVC ONE (16:55)
[2019-01-30] MEDS: Ringers Solution, Lactated 1,000 ML IVC SCH (00:02)
[2019-01-30] MEDS: *HR* Enoxaparin 30 MG/0.3 ML SYRINGE SQ SCH ×2 (06:17→18:14)
[2019-01-30] MEDS: Budesonide/Formoterol 80/4.5 1 PUFF INH IH SCH ×2 (07:24→19:54)
[2019-01-30] MEDS ORDERED: Ringers Solution, Lactated 1,000 ML IVC ONE (08:49)
[2019-01-30] MEDS: Multivit/Ca/Min/Fe/FA 1 TAB TABLET PO SCH (09:18)
[2019-01-30] MEDS: FLUoxetine 20 MG CAPSULE PO SCH (09:18)
[2019-01-30] MEDS: Ascorbic Acid 500 MG TABLET PO SCH ×2 (09:18→18:14)
[2019-01-30 10:15] LABS: Hematocrit 32.7 % (35.3-44.9); Hemoglobin 10.7 g/dL (11.5-15.4); Mean Corpuscular HGB Conc 32.7 g/dL (31.6-35.5); Mean Corpuscular Hemoglobin 28.6 pg (28.0-33.3); Mean Corpuscular Volume 87.4 fL (83.0-100.0); Mean Platelet Volume 9.2 fL (9.4-12.4); Platelet Count 215 K/mcL (140-400); Red Blood Count 3.74 M/mcL (3.82-4.97); Red Cell Distribution Width 14.2 % (11.5-14.5); White Blood Count 14.5 K/mcL (4.3-11.1)
--- NOTE | 2019-01-30 10:20 | Internal Medicine Consult Note ---
Date of Encounter: 01/30/19 Time of Encounter: 10:16 - Summary of Assessment and Plan Summary of Assessment and Plan: Radha Cardenas is a 78 F w hx HTN, DM2, COPD, OA, who was admitted for R TKA 01/27, subsequently developed N/V and diarrhea and found to have dizziness, SBP 80s persistent x2d, concerning for hypotension. Hypotension: likely multifactorial from dehydration (N/V/D), pain meds after surgery (gabapentin, hydrocodone), post-op blood loss (Hb 10 from 13), and anti- HTN meds (furosemide, lisinopril, hctz) - give additional LR 1L bolus today - hold antihypertensives - hold MELODIE and opioid medications Mild acute blood loss anemia: 3g drop in Hb following TKA with 2L boluses in last day so possible small component of dilution and post-op losses - trend Hb, maintain >7 HTN: holding meds as above DM2: controlled, ADA diet COPD: home inhalers, not on O2 and not in exacerbation Obesity: BMI 39 PPx: lovenox Activity: per Ortho FEN: ADA, no MIVF Lines: PIV Code: Full Dispo: keep obs to monitor BP, reassess tomorrow Thank you for this consult. Medicine will continue to follow along. Call with any questions. Mac Crandall MD Internal Medicine - CN: HPI - Data of Consult Patient: new to practice Consult date: 01/30/19 Requesting Physician: Werner Lewis MD - Consult Narrative Reason for consult: Hypotension History of present illness: Radha Cardenas is a 78 F w hx HTN, DM2, COPD, OA, who was admitted for R TKA 01/27. Doing well post-op until 01/28 when noted to have relative hypotension, SBP 80s, and patient remarked on occasional flushing and relative dizziness. She thinks it's from taking iron, to which she reports allergy, and she says afterward had episodes of nausea/vomiting as well as diarrhea. Hypotension persisted yesterday. She was given 1L bolus of LR each of the last two days. This AM she is still relatively hypotensive although her dizziness resolved; says able to walk to bathroom without difficulty this AM. Otherwise feeling well. No further N/V/D or dizziness today. No SOB, no edema. Past Med Surg Social Fam HX - Past Medical History Medical history: arthritis, asthma, COPD, diabetes, hypertension Additional medical history: Hypothyrodism. Diverticulitis. Colon Polyps. Cataracts Psychiatric history: anxiety, depression - Past Surgical History Surgical History: other Additional surgical history: cystocele, rectocele - Social History Smoking Status: Former smoker Smokeless Tobacco Status: No Alcohol use: none Drug use: none Internal Medicine - CN: Meds Acetaminophen [Pain Relief] 500 mg PO Q6H 7 Days #28 tablet 01/27/19 [Rx] Albuterol Sulfate [Ventolin Hfa] 2 puff IH Q4H PRN 01/27/19 [History] Buspirone HCl [Buspar] 5 mg PO BID 01/27/19 [History] Docusate [Colace] 100 mg PO BID 5 Days #10 capsule 01/27/19 [Rx] FLUoxetine HCl [PROzac] 60 mg PO DAILY 01/27/19 [History] Fluticasone/Salmeterol [Advair 250-50 Diskus] 1 puff IH BID 01/27/19 [History] Furosemide [Lasix] 40 mg PO DAILY 01/27/19 [History] Gabapentin [Neurontin] 200 mg PO TID 01/27/19 [History] Ibuprofen [Motrin] 600 mg PO Q6HR PRN 7 Days #28 tab 01/27/19 [Rx] Levothyroxine Sodium 112 mcg PO DAILY 01/27/19 [History] Lisinopril/Hydrochlorothiazide [Zestoretic 20-25 mg Tablet] 1 tab PO DAILY 01/27/19 [History] Meloxicam 15 mg PO DAILY 01/27/19 [History] Omeprazole [PriLOSEC] 20 mg PO DAILY 01/27/19 [History] OxyCODONE Immed Rel [Roxicodone 5 MG] 5 mg PO Q6HR PRN 5 Days #20 tablet 01/27/19 [Rx] Pravastatin Sodium [Pravachol] 40 mg PO HS 01/27/19 [History] Allergy/AdvReac Type Severity Reaction Status Date / Time codeine AdvReac Hives Verified 01/27/19 14:38 Hospitalist - CN: Exam - Constitutional Vitals: Temp Pulse Resp BP Pulse Ox 98.3 F 65 16 88/55 97 01/30/19 06:53 01/30/19 06:53 01/30/19 07:24 01/30/19 06:53 01/30/19 07:24 Exam: General: NAD, good eye contact, well appearing, in good spirits talking and making jokes, obese Head: Atraumatic, normocephalic. Face symmetric Eyes: EOMI, sclerae anicteric ENT: Mucous membranes moist. Normal oral mucosa and dentition. Trachea midline. Thoracic: No visible chest wall deformities. Normal breath sounds b/l, no wheezing or crackles Cardio: Normal S1 and S2, regular rate and rhythm Abdomen: Soft, nontender, nondistended. Extremities: Warm, well perfused. DP pulses 2+ b/l. No clubbing, cyanosis. Mild R knee edema at site of TKA Skin: Intact. No rashes, bruises, or ulcers. R knee incision c/d/i Neuro: Awake, fully oriented. Good memory, concentration, attention. Speech fluent. CN II-XII grossly intact. Strength 5/5 in b/l UE and LE Internal Medicine - CN: Reslt - Labs CBC & Chem 7: 01/30/19 10:02 01/30/19 10:02 Labs: Short CBC 01/29/19 Range/Units 15:59 Hgb 11.3 L (11.5-15.4) g/dL Hct 35.2 L (35.3-44.9) % BMP 01/29/19 15:59 Sodium 138 Potassium 3.4 L Chloride 97 L Carbon Dioxide 31 H BUN 31 H Creatinine 1.27 H Glucose 156 H Calcium 8.8 Consult Discharge Plan - Plan Referrals: Marcial Buck CNP [Primary Care Provider] - ()
[2019-01-30 10:34] LABS: Alanine Aminotransferase 6 Units/L (7-52); Albumin 3.2 g/dL (3.5-5.7); Albumin/Globulin Ratio 1.7 (1.1-2.2); Alkaline Phosphatase 39 Units/L (34-104); Aspartate Amino Transferase 16 Units/L (13-39); BUN/Creatinine Ratio 30 (6-26); Bilirubin,Direct 0.1 mg/dL (0.0-0.2); Bilirubin,Indirect 0.3 mg/dL (0.0-1.2); Bilirubin,Total 0.4 mg/dL (0.3-1.0); Blood Urea Nitrogen 28 mg/dL (8-23); Calcium 8.6 mg/dL (8.6-10.3); Carbon Dioxide 37 mEq/L (23-29); Chloride 98 mEq/L (98-107); Globulin 1.9 g/dL (2.4-3.5); Glucose 144 mg/dL (70-105); Osmolality,Calculated 298 (280-300); Potassium 3.7 mEq/L (3.5-5.1); Sodium 140 mEq/L (136-145); Total Protein 5.1 g/dL (6.4-8.9); eGFR For African Americans > 60 (> 60); eGFR For Non-African Americans 59 (> 60)
--- NOTE | 2019-01-30 18:07 | Orthopedics Progress Note ---
Date of Encounter: 01/29/19 Time of Encounter: 10:40 Subjective Principal diagnosis: Status post right total knee replacement Interval history: The patient is without complaints. Afebrile vital signs are stable. Incision is clean dry and intact. Neurovascularly intact with regard to bilateral lower extremities. Assessment :stable. Plan mobilize ,continue analgesics, discharge planning. Awaiting ECF placement [place] Thursday. Objective Vital signs: Vital Signs Temp Pulse Resp BP Pulse Ox 01/30/19 17:41 97.8 F 67 18 104/56 94 01/30/19 11:15 98.7 F 73 16 94/63 93 01/30/19 07:24 16 97 01/30/19 06:53 98.3 F 65 18 88/55 95 01/30/19 04:59 104/63 01/30/19 04:35 98.6 F 63 20 83/52 96 01/29/19 23:28 98/70 01/29/19 22:51 98.0 F 65 20 90/56 96 01/29/19 20:30 97.7 F 59 18 105/67 95 01/29/19 20:27 95 01/29/19 19:32 18 98 01/29/19 18:52 97.5 F L 61 93 82/52 92 Intake and Output 01/30/19 01/30/19 01/30/19 07:59 15:59 23:59 Intake Total 0 / 440 440 / 440 Balance 0 / 440 440 / 440 Intake: Oral 0 / 440 440 / 440 Other: Meal Lunch Percent of Meal Consumed 80% # Voids 1 Weight 108.2 kg Patient Weight 01/30/19 23:59 Weight 108.2 kg - Labs CBC & BMP: 01/30/19 10:02 01/30/19 10:02 Labs: Abnormal lab results WBC 14.5 K/mcL (4.3-11.1) H 01/30/19 10:02 RBC 3.74 M/mcL (3.82-4.97) L 01/30/19 10:02 Hgb 10.7 g/dL (11.5-15.4) L 01/30/19 10:02 Hct 32.7 % (35.3-44.9) L 01/30/19 10:02 MCHC 31.1 g/dL (31.6-35.5) L 01/28/19 02:01 MPV 9.2 fL (9.4-12.4) L 01/30/19 10:02 Neutrophils # 12.1 K/mcL (1.6-8.9) H 01/29/19 06:02 Potassium 3.4 mEq/L (3.5-5.1) L 01/29/19 15:59 Chloride 97 mEq/L (98-107) L 01/29/19 15:59 Carbon Dioxide 37 mEq/L (23-29) H 01/30/19 10:02 BUN 28 mg/dL (8-23) H 01/30/19 10:02 Creatinine 1.27 mg/dL (0.60-1.20) H 01/29/19 15:59 Est GFR ( Amer) 50 (> 60) L 01/29/19 15:59 Est GFR (Non-Af Amer) 59 (> 60) L 01/30/19 10:02 BUN/Creatinine Ratio 30 (6-26) H 01/30/19 10:02 Glucose 144 mg/dL (70-105) H 01/30/19 10:02 ALT 6 Units/L (7-52) L 01/30/19 10:02 Serum Total Protein 5.1 g/dL (6.4-8.9) L 01/30/19 10:02 Albumin 3.2 g/dL (3.5-5.7) L 01/30/19 10:02 Globulin 1.9 g/dL (2.4-3.5) L 01/30/19 10:02 Consult Discharge Plan - Plan Referrals: Marcial Buck, IT SOLUTIONS ARCHITECT [Primary Care Provider] - ()
--- NOTE | 2019-01-30 18:08 | Orthopedics Progress Note ---
Date of Encounter: 01/30/19 Time of Encounter: 18:07 Subjective Principal diagnosis: Status post right total knee replacement Interval history: The patient is without complaints. Afebrile vital signs are stable. Incision is clean dry and intact. Neurovascularly intact with regard to bilateral lower extremities. Assessment :stable. Plan mobilize ,continue analgesics, discharge planning. Awaiting ECF placement Thursday. Objective Vital signs: Vital Signs Temp Pulse Resp BP Pulse Ox 01/30/19 17:41 97.8 F 67 18 104/56 94 01/30/19 11:15 98.7 F 73 16 94/63 93 01/30/19 07:24 16 97 01/30/19 06:53 98.3 F 65 18 88/55 95 01/30/19 04:59 104/63 01/30/19 04:35 98.6 F 63 20 83/52 96 01/29/19 23:28 98/70 01/29/19 22:51 98.0 F 65 20 90/56 96 01/29/19 20:30 97.7 F 59 18 105/67 95 01/29/19 20:27 95 01/29/19 19:32 18 98 01/29/19 18:52 97.5 F L 61 93 82/52 92 Intake and Output 01/30/19 01/30/19 01/30/19 07:59 15:59 23:59 Intake Total 0 / 440 440 / 440 Balance 0 / 440 440 / 440 Intake: Oral 0 / 440 440 / 440 Other: Meal Lunch Percent of Meal Consumed 80% # Voids 1 Weight 108.2 kg Patient Weight 01/30/19 23:59 Weight 108.2 kg - Labs CBC & BMP: 01/30/19 10:02 01/30/19 10:02 Labs: Abnormal lab results WBC 14.5 K/mcL (4.3-11.1) H 01/30/19 10:02 RBC 3.74 M/mcL (3.82-4.97) L 01/30/19 10:02 Hgb 10.7 g/dL (11.5-15.4) L 01/30/19 10:02 Hct 32.7 % (35.3-44.9) L 01/30/19 10:02 MCHC 31.1 g/dL (31.6-35.5) L 01/28/19 02:01 MPV 9.2 fL (9.4-12.4) L 01/30/19 10:02 Neutrophils # 12.1 K/mcL (1.6-8.9) H 01/29/19 06:02 Potassium 3.4 mEq/L (3.5-5.1) L 01/29/19 15:59 Chloride 97 mEq/L (98-107) L 01/29/19 15:59 Carbon Dioxide 37 mEq/L (23-29) H 01/30/19 10:02 BUN 28 mg/dL (8-23) H 01/30/19 10:02 Creatinine 1.27 mg/dL (0.60-1.20) H 01/29/19 15:59 Est GFR ( Amer) 50 (> 60) L 01/29/19 15:59 Est GFR (Non-Af Amer) 59 (> 60) L 01/30/19 10:02 BUN/Creatinine Ratio 30 (6-26) H 01/30/19 10:02 Glucose 144 mg/dL (70-105) H 01/30/19 10:02 ALT 6 Units/L (7-52) L 01/30/19 10:02 Serum Total Protein 5.1 g/dL (6.4-8.9) L 01/30/19 10:02 Albumin 3.2 g/dL (3.5-5.7) L 01/30/19 10:02 Globulin 1.9 g/dL (2.4-3.5) L 01/30/19 10:02 Consult Discharge Plan - Plan Referrals: Marcial Buck, LEAD CUSTOMER SERVICE REPRESENTATIVE [Primary Care Provider] - ()
[2019-01-31] MEDS: *HR* Enoxaparin 30 MG/0.3 ML SYRINGE SQ SCH ×2 (06:29→16:54)
[2019-01-31] MEDS: Ondansetron 4 MG/2 ML VIAL IVP PRN (06:30)
[2019-01-31] MEDS: FLUoxetine 20 MG CAPSULE PO SCH (08:07)
[2019-01-31] MEDS: Multivit/Ca/Min/Fe/FA 1 TAB TABLET PO SCH (08:07)
[2019-01-31] MEDS: Ascorbic Acid 500 MG TABLET PO SCH ×2 (08:07→16:54)
[2019-01-31] MEDS ORDERED: Isovue-370 500 ML BOTTLE IVP ONE (10:22)
[2019-01-31] MEDS ORDERED: ISOVUE-370 100 ML INFUS..BTL PO ONE (10:48)
[2019-01-31] MEDS: Budesonide/Formoterol 80/4.5 1 PUFF INH IH SCH ×2 (10:51→20:17)
[2019-01-31 11:25] LABS: Basophils % 0.2 %; Eosinophils # 0.4 K/mcL (0.0-0.6); Eosinophils % 2.9 %; Hematocrit 32.5 % (35.3-44.9); Hemoglobin 10.3 g/dL (11.5-15.4); Immature Granulocytes % 0.5 % (0-4); Lymphocytes # 1.3 K/mcL (0.6-4.6); Lymphocytes % 9.2 %; Mean Corpuscular HGB Conc 31.7 g/dL (31.6-35.5); Mean Corpuscular Hemoglobin 28.1 pg (28.0-33.3); Mean Corpuscular Volume 88.6 fL (83.0-100.0); Mean Platelet Volume 9.6 fL (9.4-12.4); Monocytes % 6.7 %; Neutrophils # 11.5 K/mcL (1.6-8.9); Platelet Count 242 K/mcL (140-400); Red Blood Count 3.67 M/mcL (3.82-4.97); Red Cell Distribution Width 14.2 % (11.5-14.5); Segmented Neutrophils % 80.5 %; White Blood Count 14.2 K/mcL (4.3-11.1)
[2019-01-31] MEDS ORDERED: Prochlorperazine 10 MG/2 ML VIAL IVP PRN (11:29)
[2019-01-31 11:38] LABS: Blood Urea Nitrogen 19 mg/dL (8-23); Calcium 9.2 mg/dL (8.6-10.3); Carbon Dioxide 34 mEq/L (23-29); Chloride 98 mEq/L (98-107); Glucose 111 mg/dL (70-105); Osmolality,Calculated 289 (280-300); Potassium 3.6 mEq/L (3.5-5.1); Sodium 138 mEq/L (136-145)
--- NOTE | 2019-01-31 12:08 | Internal Med Progress Note ---
Hospitalist Progress Note - Encounter Date of Encounter: 01/31/19 Time of Encounter: 12:06 - Subjective Interval History: Complaining of left lower quadrant abdominal pain this morning and has been having diarrhea over the last 12-24 hours. No blood in her stools. Also worsening swelling in her right lower extremity after IV fluids were given yesterday. Blood pressures improved. Patient worried about leaving the hospital today given his acute issues. - Exam Vitals: Temp Pulse Resp BP Pulse Ox 97.9 F 65 18 111/74 93 01/31/19 10:45 01/31/19 10:45 01/31/19 10:52 01/31/19 10:45 01/31/19 10:52 Exam: General: Ill-appearing and in no acute distress HEENT: No erythema of posterior pharynx. No exudates. Lymphatics: No mandibular or cervical lymphadenopathy Cardiovascular: RRR. No murmurs. No chest wall tenderness. Lungs: Clear to auscelltation bilaterally. Regular chest rise. Abdomen: Mild LLW abdominal pain. No rebound or gaurding. Nl bowel sounds. Extremities: No edema. 2+ pulses radial and pedal pulses Skin: No rahses, abrasions, or contusions. Nl cap refill. Psych: Nl attention. A&Ox3 Neuro: able seaman II-XII intact. 5/5 strength. Sensation to light touch and pinprick intact. - Assessment and Plan (1) LLQ abdominal pain Current Visit: Yes Status: Acute Assessment and Plan: Patients with acute onset left lower quadrant abdominal pain and watery diarrhea over the last 12-24 hours. -Obvious concern for C. difficile and this will be tested for -Crampy left lower quadrant abdominal pain as well raising concern for divertic ulitis -Smouldering leukocytosis may just be related to surgery. Vitals normal and no fevers PLAN: - C. difficile toxin - CT abdomen and pelvis - Recommend against patient leaving the hospital today until these acute issues are addressed (2) Hypotension Current Visit: Yes Status: Acute Assessment and Plan: Several episodes of hypotension over the last 48 hours. Thought to be multifactorial in setting of dehydration and perioperative blood loss. Blood pressures have since normalized. - Continue to hold antihypertensives - can restart in the outpatient setting - Summary of Assessment and Plan Summary of Assessment and Plan: Radha Cardenas is a 78 F w hx HTN, DM2, COPD, OA, who was admitted for R TKA 01/27, subsequently developed N/V and diarrhea and found to have dizziness, SBP 80s persistent x2d, concerning for hypotension. Patient now having LLQ abdominal pain and diarrhea which will need additional workup. Internal Medicine: Result - Labs CBC & Chem 7: 01/31/19 11:06 01/31/19 11:06 Labs: Short CBC 01/31/19 Range/Units 11:06 WBC 14.2 H (4.3-11.1) K/mcL Hgb 10.3 L (11.5-15.4) g/dL Hct 32.5 L (35.3-44.9) % Plt Count 242 (140-400) K/mcL Neutrophils # 11.5 H (1.6-8.9) K/mcL BMP 01/31/19 11:06 Sodium 138 Potassium 3.6 Chloride 98 Carbon Dioxide 34 H BUN 19 Glucose 111 H Calcium 9.2 Consult Discharge Plan - Plan Referrals: Marcial Buck SALVAGE MACHINE OPERATOR [Primary Care Provider] - ()
[2019-01-31] MEDS: *HR* OxyCODONE Immed Rel 5 MG TABLET PO PRN ×2 (12:21→20:23)
[2019-01-31 13:22] LABS: BUN/Creatinine Ratio 21 (6-26); eGFR For African Americans > 60 (> 60); eGFR For Non-African Americans > 60 (> 60)
--- NOTE | 2019-01-31 21:29 | Orthopedics Progress Note ---
Date of Encounter: 01/31/19 Time of Encounter: 09:28 Subjective Principal diagnosis: Status post right total knee replacement Interval history: The patient is without complaints. Afebrile vital signs are stable. Incision is clean dry and intact. Neurovascularly intact with regard to bilateral lower extremities. Assessment :stable. Plan mobilize ,continue analgesics, discharge planning. Awaiting ECF placement [place]. Objective Vital signs: Vital Signs Temp Pulse Resp BP Pulse Ox 01/31/19 20:18 18 94 01/31/19 19:06 97.9 F 83 17 117/63 93 01/31/19 15:00 98.4 F 89 16 100/65 96 01/31/19 10:52 18 93 01/31/19 10:45 97.9 F 65 18 111/74 95 01/31/19 06:26 98.6 F 69 17 113/54 90 01/31/19 04:21 98.7 F 70 20 144/80 95 01/30/19 22:19 98.2 F 68 20 102/50 93 Intake and Output 01/31/19 01/31/19 01/31/19 07:59 15:59 23:59 Intake Total 150 / 570 400 / 570 20 / 570 Output Total 200 / 200 Balance 150 / 370 200 / 370 20 / 370 Intake: Oral 150 / 570 400 / 570 20 / 570 Output: Urine 200 / 200 Other: Meal Lunch Dinner Percent of Meal Consumed 65% 80% # Voids 1 1 # Bowel Movements 0 Weight 108.3 kg Patient Weight 01/31/19 23:59 Weight 108.3 kg - Labs CBC & BMP: 01/31/19 11:06 01/31/19 11:06 Labs: Abnormal lab results WBC 14.2 K/mcL (4.3-11.1) H 01/31/19 11:06 RBC 3.67 M/mcL (3.82-4.97) L 01/31/19 11:06 Hgb 10.3 g/dL (11.5-15.4) L 01/31/19 11:06 Hct 32.5 % (35.3-44.9) L 01/31/19 11:06 MCHC 31.1 g/dL (31.6-35.5) L 01/28/19 02:01 MPV 9.2 fL (9.4-12.4) L 01/30/19 10:02 Neutrophils # 11.5 K/mcL (1.6-8.9) H 01/31/19 11:06 Potassium 3.4 mEq/L (3.5-5.1) L 01/29/19 15:59 Chloride 97 mEq/L (98-107) L 01/29/19 15:59 Carbon Dioxide 34 mEq/L (23-29) H 01/31/19 11:06 BUN 28 mg/dL (8-23) H 01/30/19 10:02 Creatinine 1.27 mg/dL (0.60-1.20) H 01/29/19 15:59 Est GFR ( Amer) 50 (> 60) L 01/29/19 15:59 Est GFR (Non-Af Amer) 59 (> 60) L 01/30/19 10:02 BUN/Creatinine Ratio 30 (6-26) H 01/30/19 10:02 Glucose 111 mg/dL (70-105) H 01/31/19 11:06 ALT 6 Units/L (7-52) L 01/30/19 10:02 Serum Total Protein 5.1 g/dL (6.4-8.9) L 01/30/19 10:02 Albumin 3.2 g/dL (3.5-5.7) L 01/30/19 10:02 Globulin 1.9 g/dL (2.4-3.5) L 01/30/19 10:02 Consult Discharge Plan - Plan Referrals: Marcial Buck CNP [Primary Care Provider] - ()
[2019-01-31] MEDS: metroNIDAZOLE 500 MG TABLET PO SCH (22:35)
[2019-02-01] MEDS: *HR* Enoxaparin 30 MG/0.3 ML SYRINGE SQ SCH ×2 (05:28→18:51)
[2019-02-01 06:08] LABS: Hematocrit 35.6 % (35.3-44.9); Hemoglobin 11.4 g/dL (11.5-15.4); Mean Corpuscular Hemoglobin 28.5 pg (28.0-33.3); Mean Platelet Volume 9.5 fL (9.4-12.4); Platelet Count 307 K/mcL (140-400); Red Cell Distribution Width 14.2 % (11.5-14.5); White Blood Count 12.7 K/mcL (4.3-11.1)
[2019-02-01 06:26] LABS: BUN/Creatinine Ratio 16 (6-26); Blood Urea Nitrogen 14 mg/dL (8-23); Calcium 9.2 mg/dL (8.6-10.3); Carbon Dioxide 34 mEq/L (23-29); Chloride 98 mEq/L (98-107); Glucose 106 mg/dL (70-105); Osmolality,Calculated 293 (280-300); Potassium 3.6 mEq/L (3.5-5.1); Sodium 141 mEq/L (136-145); eGFR For African Americans > 60 (> 60); eGFR For Non-African Americans > 60 (> 60)
--- NOTE | 2019-02-01 06:46 | Orthopedics Progress Note ---
Date of Encounter: 02/01/19 Time of Encounter: 06:46 Subjective Principal diagnosis: Status post right total knee replacement Interval history: Patient was seen this morning complains of nausea.. Afebrile vital signs stable. Operative extremity: Neurovascularly intact Dressing clean dry and intact Calves nontender Assessment and plan: Continue with postoperative care Plan for transfer to rehabilitation. Objective Vital signs: Vital Signs Temp Pulse Resp BP Pulse Ox 02/01/19 03:30 98.4 F 77 17 130/64 95 01/31/19 23:09 98.8 F 68 16 134/77 93 01/31/19 20:18 18 94 01/31/19 19:06 97.9 F 83 17 117/63 93 01/31/19 15:00 98.4 F 89 16 100/65 96 01/31/19 10:52 18 93 01/31/19 10:45 97.9 F 65 18 111/74 95 Intake and Output 01/31/19 01/31/19 02/01/19 15:59 23:59 07:59 Intake Total 400 / 570 20 / 570 Output Total 200 / 200 400 / 400 Balance 200 / 370 20 / 370 -400 / -400 Intake: Oral 400 / 570 20 / 570 Output: Urine 200 / 200 400 / 400 Other: Meal Lunch Dinner Percent of Meal Consumed 65% 80% # Voids 1 1 # Bowel Movements 0 Weight 108.4 kg Patient Weight 02/01/19 23:59 Weight 108.4 kg - Labs CBC & BMP: 02/01/19 05:46 02/01/19 05:46 Labs: Abnormal lab results WBC 12.7 K/mcL (4.3-11.1) H 02/01/19 05:46 RBC 3.67 M/mcL (3.82-4.97) L 01/31/19 11:06 Hgb 11.4 g/dL (11.5-15.4) L 02/01/19 05:46 Hct 32.5 % (35.3-44.9) L 01/31/19 11:06 MCHC 31.1 g/dL (31.6-35.5) L 01/28/19 02:01 MPV 9.2 fL (9.4-12.4) L 01/30/19 10:02 Neutrophils # 11.5 K/mcL (1.6-8.9) H 01/31/19 11:06 Potassium 3.4 mEq/L (3.5-5.1) L 01/29/19 15:59 Chloride 97 mEq/L (98-107) L 01/29/19 15:59 Carbon Dioxide 34 mEq/L (23-29) H 02/01/19 05:46 BUN 28 mg/dL (8-23) H 01/30/19 10:02 Creatinine 1.27 mg/dL (0.60-1.20) H 01/29/19 15:59 Est GFR ( Amer) 50 (> 60) L 01/29/19 15:59 Est GFR (Non-Af Amer) 59 (> 60) L 01/30/19 10:02 BUN/Creatinine Ratio 30 (6-26) H 01/30/19 10:02 Glucose 106 mg/dL (70-105) H 02/01/19 05:46 ALT 6 Units/L (7-52) L 01/30/19 10:02 Serum Total Protein 5.1 g/dL (6.4-8.9) L 01/30/19 10:02 Albumin 3.2 g/dL (3.5-5.7) L 01/30/19 10:02 Globulin 1.9 g/dL (2.4-3.5) L 01/30/19 10:02 Consult Discharge Plan - Plan Referrals: Marcial Buck, PAINT FORMULATOR [Primary Care Provider] - ()
[2019-02-01] MEDS ORDERED: *HR* Promethazine 25 MG/ML VIAL IM PRN (07:06)
[2019-02-01] MEDS: Budesonide/Formoterol 80/4.5 1 PUFF INH IH SCH (07:34)
[2019-02-01] MEDS: FLUoxetine 20 MG CAPSULE PO SCH (08:08)
[2019-02-01] MEDS: metroNIDAZOLE 500 MG TABLET PO SCH ×2 (08:09→15:36)
[2019-02-01] MEDS: Ascorbic Acid 500 MG TABLET PO SCH ×2 (08:09→15:36)
[2019-02-01] MEDS: Multivit/Ca/Min/Fe/FA 1 TAB TABLET PO SCH ×2 (08:10→08:15)
--- NOTE | 2019-02-01 09:18 | Internal Med Progress Note ---
Hospitalist Progress Note - Encounter Date of Encounter: 02/01/19 Time of Encounter: 09:16 - Subjective Interval History: Diarrhea has now resolved so patient was unable to produce a stool sample. Having some nausea but this is actually improved over the last 48 hours. Some gas pain in her abdomen but not severe. - Exam Vitals: Temp Pulse Resp BP Pulse Ox 99.0 F 79 18 127/79 97 02/01/19 08:09 02/01/19 08:09 02/01/19 08:09 02/01/19 08:09 02/01/19 08:09 Exam: General: Ill-appearing and in no acute distress HEENT: No erythema of posterior pharynx. No exudates. Lymphatics: No mandibular or cervical lymphadenopathy Cardiovascular: RRR. No murmurs. No chest wall tenderness. Lungs: Clear to auscelltation bilaterally. Regular chest rise. Abdomen: Mild LLW abdominal pain. No rebound or gaurding. Nl bowel sounds. Extremities: No edema. 2+ pulses radial and pedal pulses Skin: No rahses, abrasions, or contusions. Nl cap refill. Psych: Nl attention. A&Ox3 Neuro: nutrition manager II-XII intact. 5/5 strength. Sensation to light touch and pinprick intact. - Assessment and Plan (1) LLQ abdominal pain Current Visit: Yes Status: Acute Assessment and Plan: Patient with acute onset left lower quadrant abdominal pain and watery diarrhea over the last 12-24 hours. -Obvious concern for C. difficile but unable to produce a stool sample and diarrhea has since resolved -CT abd/pelvis with nonspecific colitis of descending colon PLAN: - Recommend patient discharge today with cipro/flagyl to complete a 10 day co urse - Recommend simethicone prn for abdominal cramping (2) Hypotension Current Visit: Yes Status: Acute Assessment and Plan: Several episodes of hypotension over the last 48 hours. Thought to be multifactorial in setting of dehydration and perioperative blood loss. Blood pressures have since normalized. - Restart Lasix 40mg qd - Continue to hold Lisinopril/hctz - can restart in the outpatient setting - Time Spent with Patient Total time spent is greater than 50% in coordination of care (as documented) at patient's floor/unit and/or counseling patient: Internal Medicine: Result - Labs CBC & Chem 7: 02/01/19 05:46 02/01/19 05:46 Labs: Short CBC 01/31/19 02/01/19 Range/Units 11:06 05:46 WBC 14.2 H 12.7 H (4.3-11.1) K/mcL Hgb 10.3 L 11.4 L (11.5-15.4) g/dL Hct 32.5 L 35.6 (35.3-44.9) % Plt Count 242 307 (140-400) K/mcL Neutrophils # 11.5 H (1.6-8.9) K/mcL BMP 01/31/19 02/01/19 11:06 05:46 Sodium 138 141 Potassium 3.6 3.6 Chloride 98 98 Carbon Dioxide 34 H 34 H BUN 19 14 Creatinine 0.89 0.85 Glucose 111 H 106 H Calcium 9.2 9.2 - Impressions Impressions Abdomen/Pelvis CT 01/31/19 10:22 IMPRESSION: 1. Mild bowel wall thickening of the proximal descending colon which is nonspecific but could indicate a mild infectious or inflammatory colitis. 2. Marked diverticulosis. 3. Incidental left adrenal adenoma. 4. Moderate atherosclerosis. D/ / 01/31/2019 15:26:58 Yosef Barahona MD / [facility] Interpreting Provider: Yosef Barahona MD Consult Discharge Plan - Plan Referrals: Marcial Buck, [facility] [Primary Care Provider] - ()
[2019-02-01] MEDS ORDERED: Simethicone 80 MG TAB.CHEW PO PRN (09:22)
[2019-02-01] MEDS ORDERED: Furosemide 40 MG TABLET PO SCH (10:00)
[2019-02-01 15:17] VITALS: BP 121/76
[2019-02-01] MEDS: Ringers Solution, Lactated 1,000 ML IVC SCH ×3 (15:55→15:56)
[2019-02-01] MEDS: *HR* OxyCODONE Immed Rel 5 MG TABLET PO PRN (18:02)
--- NOTE | 2019-02-17 09:34 | History & Physical Report ---
Date of Encounter: 01/27/19 Time of Encounter: 11:00 24 Hour HP Update - Instructions Instructions: If the History and Physical is less than 30 days old and was completed prior to A.M. admission and or procedure and has NOT been updated on calendar day of procedure please complete this update prior to performing procedure. - Update Patient reports changes in Medical Condition: No Changes in examination, assessment, or condition: No Changes in Medication: No Preop tests/diagnostics Reviewed: Yes Surgery Remains Indicated: Yes Consent for Planned Operative Procedure(s) Verified: Yes - Pre-Operative Checklist Preoperative Checklist Indicated: No Prophylactic Antibiotic Ordered: Yes Is VTE Prophylaxis Indicated?: Yes
== END 2019-02-01 19:00 | DRG 470 ==
LOC: SAMDAY 13:47 → 3NENU 20:01 → SUATTDRO 01-28 11:19
PROVIDERS: ADMIT Orthopaedic Surgery; ATTEND Internal Medicine

== ENCOUNTER 2019-03-03 13:46 | Observation (INO) ==
[2019-03-03] MEDS ORDERED: *HR* OxyCODONE/APAP 5/325 TABLET PO ONE (14:32)
[2019-03-03 14:59] LABS: Basophils % 0.2 %; Eosinophils # 0.1 K/mcL (0.0-0.6); Eosinophils % 0.5 %; Hematocrit 42.9 % (35.3-44.9); Hemoglobin 13.6 g/dL (11.5-15.4); Immature Granulocytes % 0.4 % (0-4); Lymphocytes # 0.5 K/mcL (0.6-4.6); Lymphocytes % 5.4 %; Mean Corpuscular HGB Conc 31.7 g/dL (31.6-35.5); Mean Corpuscular Hemoglobin 27.9 pg (28.0-33.3); Mean Corpuscular Volume 88.1 fL (83.0-100.0); Mean Platelet Volume 9.3 fL (9.4-12.4); Monocytes # 0.1 K/mcL (0.0-1.3); Monocytes % 1.1 %; Platelet Count 273 K/mcL (140-400); Red Blood Count 4.87 M/mcL (3.82-4.97); Red Cell Distribution Width 14.4 % (11.5-14.5); Segmented Neutrophils % 92.4 %; White Blood Count 9.8 K/mcL (4.3-11.1)
[2019-03-03 15:07] LABS: Alanine Aminotransferase 15 Units/L (7-52); Albumin 4.1 g/dL (3.5-5.7); Albumin/Globulin Ratio 1.4 (1.1-2.2); Alkaline Phosphatase 80 Units/L (34-104); Aspartate Amino Transferase 18 Units/L (13-39); BUN/Creatinine Ratio 21 (6-26); Bilirubin,Direct 0.1 mg/dL (0.0-0.2); Bilirubin,Indirect 0.2 mg/dL (0.0-1.2); Bilirubin,Total 0.3 mg/dL (0.3-1.0); Blood Urea Nitrogen 26 mg/dL (8-23); Calcium 9.1 mg/dL (8.6-10.3); Carbon Dioxide 30 mEq/L (23-29); Chloride 96 mEq/L (98-107); Glucose 151 mg/dL (70-105); Osmolality,Calculated 286 (280-300); Potassium 3.7 mEq/L (3.5-5.1); Sodium 134 mEq/L (136-145); Total Protein 7.1 g/dL (6.4-8.9); Troponin I < 0.03 ng/mL (< 0.04); eGFR For African Americans 50 (> 60); eGFR For Non-African Americans 42 (> 60)
[2019-03-03 15:09] LABS: Prothrombin Time 11.8 Seconds (9.4-12.1)
[2019-03-03 15:12] LABS: Activated Partial Thrombo Time 29.2 Seconds (26.0-36.0)
[2019-03-03] MEDS ORDERED: 0.9 % Sodium Chloride 1,000 ML IVC ONE (16:08)
[2019-03-03] MEDS ORDERED: Acetaminophen 325 MG TABLET PO PRN (17:20)
[2019-03-03] MEDS ORDERED: Naloxone 0.4 MG/ML INJ IVP PRN (17:20)
[2019-03-03] MEDS: *HR* OxyCODONE Immed Rel 5 MG TABLET PO PRN (20:28)
[2019-03-03] MEDS: *HR* Heparin 5,000 UNIT/ML VIAL SQ SCH (20:28)
[2019-03-03] MEDS: Gabapentin 100 MG CAPSULE PO SCH (20:28)
[2019-03-03] MEDS ORDERED: Vancomycin 500 MG in 0.9 % Sodium Chloride Mini Bag 100 ML IVPB ONE (21:14)
[2019-03-03] MEDS: Budesonide/Formoterol 80/4.5 1 PUFF INH IH SCH (21:31)
[2019-03-04] MEDS: *HR* HYDROcodone/Acet 5/325 mg TABLET PO PRN ×2 (01:23→23:18)
[2019-03-04 01:38] LABS: Basophils % 0.1 %; Hematocrit 39.5 % (35.3-44.9); Hemoglobin 12.6 g/dL (11.5-15.4); Immature Granulocytes % 0.5 % (0-4); Lymphocytes # 0.7 K/mcL (0.6-4.6); Lymphocytes % 6.9 %; Mean Corpuscular HGB Conc 31.9 g/dL (31.6-35.5); Mean Corpuscular Hemoglobin 28.1 pg (28.0-33.3); Mean Corpuscular Volume 88.2 fL (83.0-100.0); Mean Platelet Volume 9.6 fL (9.4-12.4); Monocytes # 0.3 K/mcL (0.0-1.3); Monocytes % 2.5 %; Platelet Count 260 K/mcL (140-400); Red Blood Count 4.48 M/mcL (3.82-4.97); Red Cell Distribution Width 14.1 % (11.5-14.5)
[2019-03-04 02:00] LABS: Calcium 8.8 mg/dL (8.6-10.3); Potassium 4.1 mEq/L (3.5-5.1)
[2019-03-04] MEDS: FLUoxetine 20 MG CAPSULE PO SCH (09:36)
[2019-03-04] MEDS: Gabapentin 100 MG CAPSULE PO SCH ×3 (09:37→23:19)
[2019-03-04] MEDS: *HR* Heparin 5,000 UNIT/ML VIAL SQ SCH ×2 (09:38→18:41)
[2019-03-04] MEDS: Budesonide/Formoterol 80/4.5 1 PUFF INH IH SCH ×2 (10:43→22:31)
[2019-03-04] MEDS ORDERED: Sennosides 8.6 MG TABLET PO PRN (13:36)
[2019-03-04] MEDS ORDERED: Furosemide 40 MG TABLET PO PRN (13:36)
[2019-03-04] MEDS: *HR* OxyCODONE Immed Rel 5 MG TABLET PO PRN (16:07)
[2019-03-05] MEDS: *HR* Heparin 5,000 UNIT/ML VIAL SQ SCH (05:51)
[2019-03-05 07:18] LABS: Basophils # 0.1 K/mcL (0.0-0.2); Basophils % 0.5 %; Eosinophils # 0.2 K/mcL (0.0-0.6); Hematocrit 38.3 % (35.3-44.9); Hemoglobin 12.1 g/dL (11.5-15.4); Immature Granulocytes % 0.5 % (0-4); Lymphocytes # 2.3 K/mcL (0.6-4.6); Lymphocytes % 21.2 %; Mean Corpuscular HGB Conc 31.6 g/dL (31.6-35.5); Mean Corpuscular Hemoglobin 28.1 pg (28.0-33.3); Mean Corpuscular Volume 88.9 fL (83.0-100.0); Mean Platelet Volume 9.6 fL (9.4-12.4); Monocytes # 0.7 K/mcL (0.0-1.3); Monocytes % 6.6 %; Neutrophils # 7.4 K/mcL (1.6-8.9); Platelet Count 246 K/mcL (140-400); Red Blood Count 4.31 M/mcL (3.82-4.97); Red Cell Distribution Width 14.1 % (11.5-14.5); Segmented Neutrophils % 69.2 %; White Blood Count 10.7 K/mcL (4.3-11.1)
[2019-03-05 08:01] LABS: BUN/Creatinine Ratio 23 (6-26); Blood Urea Nitrogen 23 mg/dL (8-23); Calcium 8.7 mg/dL (8.6-10.3); Carbon Dioxide 30 mEq/L (23-29); Chloride 105 mEq/L (98-107); Glucose 103 mg/dL (70-105); Osmolality,Calculated 288 (280-300); Potassium 4.2 mEq/L (3.5-5.1); Sodium 137 mEq/L (136-145); eGFR For African Americans > 60 (> 60); eGFR For Non-African Americans 55 (> 60)
[2019-03-05] MEDS: Budesonide/Formoterol 80/4.5 1 PUFF INH IH SCH (08:02)
[2019-03-05] MEDS ORDERED: Lactobacillus 1 EACH CAP.SPRINK PO SCH (09:00)
[2019-03-05] MEDS: Gabapentin 100 MG CAPSULE PO SCH ×2 (10:19→15:57)
[2019-03-05] MEDS: FLUoxetine 20 MG CAPSULE PO SCH (10:19)
[2019-03-05] MEDS: *HR* OxyCODONE Immed Rel 5 MG TABLET PO PRN (10:27)
[2019-03-05 11:44] VITALS: BP 119/71
[2019-03-05] MEDS ORDERED: FLU Vac QV 19-20 (6Month+)/PF 0.5 ML SYRINGE IM ONE (13:05)
[2019-03-05] MEDS: *HR* HYDROcodone/Acet 5/325 mg TABLET PO PRN (15:56)
[2019-03-05] MEDS ORDERED: Aminoglycoside Consult 1 EACH MC ONE (16:09)
== END 2019-03-05 16:10 ==
LOC: 3NENU 13:46 → EMEROOARM 13:46 → SUATTDRO 17:55 → 3NENU 19:00
PROVIDERS: ADMIT Internal Medicine; ATTEND Internal Medicine

== ENCOUNTER 2019-05-26 06:37 | Inpatient (IN) ==
[2019-05-26] MEDS ORDERED: *HR* Propofol 200 MG/20 ML VIAL IVP ONE (07:18)
[2019-05-26] MEDS ORDERED: Ondansetron 4 MG/2 ML VIAL ONE (07:18)
[2019-05-26] MEDS ORDERED: Lidocaine -MPF 2% 2 ML VIAL ONE (07:18)
[2019-05-26] MEDS ORDERED: *HR* FentaNYL (PF) 100 MCG/2 ML VIAL ONE (07:18)
[2019-05-26] MEDS ORDERED: Dexamethasone 4 MG/ML VIAL ONE ×2 (07:18→09:16)
[2019-05-26] MEDS ORDERED: *HR* Midazolam HCl 2 MG/2 ML VIAL ONE (07:18)
[2019-05-26] MEDS ORDERED: Albuterol 2.5 MG/3 ML NEBULIZER IH PRN (07:57)
[2019-05-26] MEDS ORDERED: Ringers Solution, Lactated 1,000 ML IVC SCH ×2 (08:00→10:15)
[2019-05-26] MEDS ORDERED: Albuterol 2.5 MG/3 ML NEBULIZER ONE (08:08)
[2019-05-26] MEDS ORDERED: Scopolamine Patch 1.5 MG PATCH.TD72 TD ONE (08:43)
[2019-05-26] MEDS ORDERED: *HR* OxyCODONE Immed Rel 5 MG TABLET PO PRN (08:44)
[2019-05-26] MEDS ORDERED: Ondansetron 4 MG/2 ML VIAL IVP ONE (08:44)
[2019-05-26] MEDS ORDERED: Ethanol\\Acetic Acid\\Na Ace\\Ben 1,000 ML IRRIG.SOLN IR ONE ×2 (08:53→08:56)
[2019-05-26] MEDS ORDERED: EPHEDrine 50 MG/ML VIAL ONE (09:37)
[2019-05-26] MEDS ORDERED: *HR* HYDROMORPHONE 2 MG/ML VIAL ONE (09:51)
[2019-05-26] MEDS ORDERED: MOM Conc 10 ML UD.LIQ PO PRN (10:06)
[2019-05-26] MEDS ORDERED: *HR* Promethazine 25 MG/ML VIAL IVP PRN (10:06)
[2019-05-26] MEDS ORDERED: Ondansetron 4 MG/2 ML VIAL IVP PRN (10:06)
[2019-05-26] MEDS ORDERED: Naloxone 0.4 MG/ML INJ IVP PRN (10:06)
[2019-05-26] MEDS ORDERED: HYDROcodone BIT/Homatropine 5 MG TABLET PO PRN (10:06)
[2019-05-26] MEDS ORDERED: Temazepam 15 MG CAPSULE PO PRN (10:06)
[2019-05-26] MEDS ORDERED: Furosemide 40 MG TABLET PO PRN (10:07)
[2019-05-26] MEDS ORDERED: Lactobacillus 1 EACH CAP.SPRINK PO PRN (10:07)
[2019-05-26] MEDS: *HR* HYDROmorphone (PF) 1 MG/ML SYRINGE IVP PRN ×2 (10:11→10:23)
[2019-05-26] MEDS: Ascorbic Acid 500 MG TABLET PO SCH (15:34)
[2019-05-26] MEDS: *HR* OxyCODONE Immed Rel 5 MG TABLET PO PRN ×2 (15:34→20:12)
[2019-05-26] MEDS: Ondansetron ODT 4 MG TAB.RAPDIS SL SCH (15:34)
[2019-05-26] MEDS: Gabapentin 100 MG CAPSULE PO SCH ×2 (15:34→20:12)
[2019-05-26] MEDS: Budesonide/Formoterol 80/4.5 1 PUFF INH IH SCH (20:45)
[2019-05-26] MEDS ORDERED: Sennosides 8.6 MG TABLET PO PRN (21:00)
[2019-05-27] MEDS: Ondansetron ODT 4 MG TAB.RAPDIS SL SCH ×3 (00:53→16:59)
[2019-05-27 02:37] LABS: Basophils % 0.3 %; Eosinophils % 0.1 %; Hematocrit 43.8 % (35.3-44.9); Hemoglobin 13.8 g/dL (11.5-15.4); Immature Granulocytes % 0.4 % (0-4); Lymphocytes % 10.3 %; Mean Corpuscular HGB Conc 31.5 g/dL (31.6-35.5); Mean Corpuscular Hemoglobin 27.7 pg (28.0-33.3); Mean Corpuscular Volume 87.8 fL (83.0-100.0); Monocytes # 0.6 K/mcL (0.0-1.3); Monocytes % 6.3 %; Platelet Count 304 K/mcL (140-400); Red Blood Count 4.99 M/mcL (3.82-4.97); Red Cell Distribution Width 14.6 % (11.5-14.5); Segmented Neutrophils % 82.6 %; White Blood Count 9.7 K/mcL (4.3-11.1)
[2019-05-27 03:01] LABS: BUN/Creatinine Ratio 18 (6-26); Blood Urea Nitrogen 17 mg/dL (8-23); Calcium 9.3 mg/dL (8.6-10.3); Carbon Dioxide 32 mEq/L (23-29); Chloride 99 mEq/L (98-107); Glucose 161 mg/dL (70-105); Osmolality,Calculated 289 (280-300); Potassium 4.6 mEq/L (3.5-5.1); Sodium 137 mEq/L (136-145); eGFR For African Americans > 60 (> 60); eGFR For Non-African Americans 56 (> 60)
[2019-05-27] MEDS: *HR* OxyCODONE Immed Rel 5 MG TABLET PO PRN ×3 (05:23→19:32)
[2019-05-27] MEDS: FLUoxetine 20 MG CAPSULE PO SCH (08:16)
[2019-05-27] MEDS: Ascorbic Acid 500 MG TABLET PO SCH ×2 (08:18→16:58)
[2019-05-27] MEDS: Gabapentin 100 MG CAPSULE PO SCH ×3 (08:19→21:39)
[2019-05-27] MEDS: Multivit/Ca/Min/Fe/FA 1 TAB TABLET PO SCH ×2 (08:20→11:24)
[2019-05-27] MEDS: Budesonide/Formoterol 80/4.5 1 PUFF INH IH SCH ×2 (08:33→20:45)
[2019-05-28] MEDS: Ondansetron ODT 4 MG TAB.RAPDIS SL SCH ×4 (00:01→23:19)
[2019-05-28] MEDS: Gabapentin 100 MG CAPSULE PO SCH ×3 (08:13→20:35)
[2019-05-28] MEDS: Ascorbic Acid 500 MG TABLET PO SCH ×2 (08:13→16:33)
[2019-05-28] MEDS: FLUoxetine 20 MG CAPSULE PO SCH (08:14)
[2019-05-28] MEDS: Budesonide/Formoterol 80/4.5 1 PUFF INH IH SCH ×2 (08:14→20:04)
[2019-05-28] MEDS: Multivit/Ca/Min/Fe/FA 1 TAB TABLET PO SCH (08:16)
[2019-05-28 14:28] LABS: Basophils # 0.1 K/mcL (0.0-0.2); Basophils % 0.6 %; Eosinophils # 0.4 K/mcL (0.0-0.6); Eosinophils % 4.5 %; Hematocrit 41.8 % (35.3-44.9); Hemoglobin 13.6 g/dL (11.5-15.4); Immature Granulocytes % 0.2 % (0-4); Lymphocytes # 2.1 K/mcL (0.6-4.6); Lymphocytes % 25.8 %; Mean Corpuscular HGB Conc 32.5 g/dL (31.6-35.5); Mean Corpuscular Hemoglobin 27.7 pg (28.0-33.3); Mean Corpuscular Volume 85.1 fL (83.0-100.0); Mean Platelet Volume 9.2 fL (9.4-12.4); Monocytes # 0.6 K/mcL (0.0-1.3); Monocytes % 7.2 %; Neutrophils # 5.1 K/mcL (1.6-8.9); Platelet Count 316 K/mcL (140-400); Red Blood Count 4.91 M/mcL (3.82-4.97); Red Cell Distribution Width 14.8 % (11.5-14.5); Segmented Neutrophils % 61.7 %; White Blood Count 8.2 K/mcL (4.3-11.1)
[2019-05-28 14:42] LABS: BUN/Creatinine Ratio 21 (6-26); Blood Urea Nitrogen 21 mg/dL (8-23); Calcium 8.6 mg/dL (8.6-10.3); Carbon Dioxide 28 mEq/L (23-29); Chloride 105 mEq/L (98-107); Glucose 121 mg/dL (70-105); Osmolality,Calculated 286 (280-300); Potassium 3.8 mEq/L (3.5-5.1); Sodium 136 mEq/L (136-145); eGFR For African Americans > 60 (> 60); eGFR For Non-African Americans 55 (> 60)
[2019-05-29] MEDS: Budesonide/Formoterol 80/4.5 1 PUFF INH IH SCH ×2 (07:56→20:44)
[2019-05-29] MEDS: Gabapentin 100 MG CAPSULE PO SCH ×3 (09:08→19:36)
[2019-05-29] MEDS: Ondansetron ODT 4 MG TAB.RAPDIS SL SCH ×3 (09:08→23:12)
[2019-05-29] MEDS: Ascorbic Acid 500 MG TABLET PO SCH ×2 (09:09→16:46)
[2019-05-29] MEDS: FLUoxetine 20 MG CAPSULE PO SCH ×2 (09:09→09:24)
[2019-05-29] MEDS: Multivit/Ca/Min/Fe/FA 1 TAB TABLET PO SCH (09:15)
[2019-05-29] MEDS: *HR* OxyCODONE Immed Rel 5 MG TABLET PO PRN (16:50)
[2019-05-30] MEDS: Budesonide/Formoterol 80/4.5 1 PUFF INH IH SCH (07:50)
[2019-05-30] MEDS: Ascorbic Acid 500 MG TABLET PO SCH (08:34)
[2019-05-30] MEDS: FLUoxetine 20 MG CAPSULE PO SCH (08:34)
[2019-05-30] MEDS: Ondansetron ODT 4 MG TAB.RAPDIS SL SCH (08:34)
[2019-05-30] MEDS: Gabapentin 100 MG CAPSULE PO SCH (08:35)
[2019-05-30] MEDS: Multivit/Ca/Min/Fe/FA 1 TAB TABLET PO SCH (08:35)
[2019-05-30] MEDS: *HR* Rivaroxaban 10 MG TABLET PO SCH ×2 (12:12→12:14)
[2019-05-30 15:11] VITALS: BP 141/83
[2019-05-30] MEDS ORDERED: *HR* Rivaroxaban 10 MG TABLET PO SCH (17:00)
== END 2019-05-30 17:11 | DRG 908 ==
LOC: SAMDAYPAV 06:37 → 3NENU 06:37
PROVIDERS: ADMIT Orthopaedic Surgery; ATTEND Orthopaedic Surgery

== ENCOUNTER 2019-07-17 13:34 | Observation (INO) ==
[2019-07-17] MEDS ORDERED: Piperacillin/Tazobactam 3.375 GM in 0.9 % Sodium Chloride Mini Bag 100 ML IVPB ONE (14:08)
[2019-07-17 14:30] LABS: Basophils # 0.1 K/mcL (0.0-0.2); Basophils % 0.6 %; Eosinophils # 0.2 K/mcL (0.0-0.6); Eosinophils % 2.1 %; Hematocrit 44.3 % (35.3-44.9); Hemoglobin 15.2 g/dL (11.5-15.4); Immature Granulocytes % 0.4 % (0-4); Lymphocytes # 1.8 K/mcL (0.6-4.6); Lymphocytes % 17.2 %; Mean Corpuscular HGB Conc 34.3 g/dL (31.6-35.5); Mean Corpuscular Hemoglobin 27.9 pg (28.0-33.3); Mean Corpuscular Volume 81.4 fL (83.0-100.0); Mean Platelet Volume 9.4 fL (9.4-12.4); Monocytes # 0.7 K/mcL (0.0-1.3); Neutrophils # 7.6 K/mcL (1.6-8.9); Platelet Count 328 K/mcL (140-400); Red Blood Count 5.44 M/mcL (3.82-4.97); Red Cell Distribution Width 14.5 % (11.5-14.5); Segmented Neutrophils % 72.7 %; White Blood Count 10.4 K/mcL (4.3-11.1)
[2019-07-17 14:36] LABS: INR 1.4; Prothrombin Time 15.4 Seconds (9.4-12.1)
[2019-07-17 14:50] LABS: Alanine Aminotransferase 12 Units/L (7-52); Albumin 3.9 g/dL (3.5-5.7); Albumin/Globulin Ratio 1.3 (1.1-2.2); Alkaline Phosphatase 67 Units/L (34-104); Aspartate Amino Transferase 13 Units/L (13-39); BUN/Creatinine Ratio 14 (6-26); Bilirubin,Total 0.5 mg/dL (0.3-1.0); Blood Urea Nitrogen 11 mg/dL (8-23); Calcium 9.3 mg/dL (8.6-10.3); Carbon Dioxide 29 mEq/L (23-29); Chloride 95 mEq/L (98-107); Globulin 2.9 g/dL (2.4-3.5); Glucose 123 mg/dL (70-105); Osmolality,Calculated 275 (280-300); Potassium 3.5 mEq/L (3.5-5.1); Sodium 132 mEq/L (136-145); Total Protein 6.8 g/dL (6.4-8.9); eGFR For African Americans > 60 (> 60); eGFR For Non-African Americans > 60 (> 60)
[2019-07-17] MEDS ORDERED: *HR* HYDROcodone/Acet 5/325 mg TABLET PO ONE (15:19)
[2019-07-17] MEDS ORDERED: Ondansetron 4 MG/2 ML VIAL IVP PRN (15:52)
[2019-07-17] MEDS ORDERED: Naloxone 0.4 MG/ML INJ IVP PRN (15:52)
[2019-07-17] MEDS ORDERED: Acetaminophen 325 MG TABLET PO PRN (15:52)
[2019-07-17] MEDS ORDERED: Ipratropium/Albuterol Neb 3 ML IH PRN (16:20)
[2019-07-17] MEDS ORDERED: D5% in Water 1,000 ML IVC PRN (16:21)
[2019-07-17] MEDS ORDERED: Dextrose Gel 15 GM/37.5 ML TUBE PO PRN ×2 (16:21)
[2019-07-17] MEDS ORDERED: *HR* Dextrose 50 % in Water (Syg) 50 ML SYRINGE IVP PRN (16:21)
[2019-07-17] MEDS: *HR* Rivaroxaban 10 MG TABLET PO SCH (18:08)
[2019-07-17] MEDS: Insulin LISPRO 300 UNITS/3 ML VIAL SQ SCH ×2 (18:09→21:32)
[2019-07-17] MEDS ORDERED: hydrOXYzine pamoate 25 MG CAPSULE PO ONE (18:20)
[2019-07-17] MEDS ORDERED: Ringers Solution, Lactated 1,000 ML IVC SCH (23:59)
[2019-07-18] MEDS: Piperacillin/Tazobactam 3.375 GM in 0.9 % Sodium Chloride Mini Bag 100 ML IVPB SCH ×4 (00:05→23:19)
[2019-07-18 02:12] LABS: Hematocrit 42.6 % (35.3-44.9); Hemoglobin 14.1 g/dL (11.5-15.4); Mean Corpuscular HGB Conc 33.1 g/dL (31.6-35.5); Mean Corpuscular Hemoglobin 27.3 pg (28.0-33.3); Mean Corpuscular Volume 82.4 fL (83.0-100.0); Mean Platelet Volume 9.3 fL (9.4-12.4); Platelet Count 310 K/mcL (140-400); Red Blood Count 5.17 M/mcL (3.82-4.97); Red Cell Distribution Width 14.6 % (11.5-14.5)
[2019-07-18 02:20] LABS: BUN/Creatinine Ratio 14 (6-26); Blood Urea Nitrogen 12 mg/dL (8-23); Carbon Dioxide 30 mEq/L (23-29); Chloride 98 mEq/L (98-107); Glucose 103 mg/dL (70-105); Osmolality,Calculated 276 (280-300); Potassium 3.4 mEq/L (3.5-5.1); Sodium 133 mEq/L (136-145); eGFR For African Americans > 60 (> 60); eGFR For Non-African Americans > 60 (> 60)
[2019-07-18] MEDS: Insulin LISPRO 300 UNITS/3 ML VIAL SQ SCH ×4 (07:27→20:38)
[2019-07-18] MEDS ORDERED: Budesonide/Formoterol 80/4.5 1 PUFF INH IH PRN (10:48)
[2019-07-18] MEDS: *HR* HYDROcodone/Acet 5/325 mg TABLET PO PRN (13:12)
[2019-07-18] MEDS: *HR* Rivaroxaban 10 MG TABLET PO SCH (17:20)
[2019-07-19 04:17] LABS: Basophils % 0.6 %; Eosinophils # 0.2 K/mcL (0.0-0.6); Eosinophils % 3.1 %; Hematocrit 46.1 % (35.3-44.9); Hemoglobin 14.5 g/dL (11.5-15.4); Immature Granulocytes % 0.3 % (0-4); Lymphocytes # 1.7 K/mcL (0.6-4.6); Lymphocytes % 24.8 %; Mean Corpuscular HGB Conc 31.5 g/dL (31.6-35.5); Mean Corpuscular Hemoglobin 27.6 pg (28.0-33.3); Mean Corpuscular Volume 87.6 fL (83.0-100.0); Mean Platelet Volume 9.4 fL (9.4-12.4); Monocytes # 0.5 K/mcL (0.0-1.3); Neutrophils # 4.4 K/mcL (1.6-8.9); Platelet Count 310 K/mcL (140-400); Red Blood Count 5.26 M/mcL (3.82-4.97); Red Cell Distribution Width 14.6 % (11.5-14.5); Segmented Neutrophils % 64.2 %; White Blood Count 6.8 K/mcL (4.3-11.1)
[2019-07-19 04:30] LABS: BUN/Creatinine Ratio 13 (6-26); Blood Urea Nitrogen 12 mg/dL (8-23); Calcium 9.3 mg/dL (8.6-10.3); Carbon Dioxide 27 mEq/L (23-29); Chloride 102 mEq/L (98-107); Glucose 100 mg/dL (70-105); Osmolality,Calculated 282 (280-300); Potassium 4.2 mEq/L (3.5-5.1); Sodium 136 mEq/L (136-145); eGFR For African Americans > 60 (> 60); eGFR For Non-African Americans 57 (> 60)
[2019-07-19] MEDS: Insulin LISPRO 300 UNITS/3 ML VIAL SQ SCH ×4 (07:24→22:10)
[2019-07-19] MEDS: Piperacillin/Tazobactam 3.375 GM in 0.9 % Sodium Chloride Mini Bag 100 ML IVPB SCH ×2 (07:55→16:17)
[2019-07-19] MEDS ORDERED: Lactobacillus 1 EACH CAP.SPRINK PO SCH (09:00)
[2019-07-19] MEDS ORDERED: Cholecalciferol (D-3) 1,000 UNIT (25MCG) TABLET PO SCH (09:00)
[2019-07-19] MEDS ORDERED: FLUoxetine 20 MG CAPSULE PO SCH (09:00)
[2019-07-19] MEDS: *HR* Rivaroxaban 10 MG TABLET PO SCH (16:14)
[2019-07-19 19:11] VITALS: BP 135/77
[2019-07-19] MEDS: *HR* HYDROcodone/Acet 5/325 mg TABLET PO PRN (22:20)
[2019-07-19] MEDS ORDERED: Aminoglycoside Consult 1 EACH MC ONE (22:51)
== END 2019-07-19 22:52 | disposition home or self-care (01) ==
LOC: EMEROOARM 13:34 → 3ANU 13:34 → SUATTDRO 15:58 → 3NENU 16:11
PROVIDERS: ADMIT Pharmacist; ATTEND Internal Medicine